=== PATIENT | female | born 1965 | race Caucasian/White ===

== ENCOUNTER 2018-04-06 11:46 | Emergency (ER) | payer BC ==
[2018-04-06] MEDS ORDERED: TETANUS & DIPHTHERIA TOX,ADULT 0.5 ML VIAL ONE (12:33)
[2018-04-06] MEDS ORDERED: LIDOCAINE 1% W/EPI 1:100,000 MDV 50 ML VIAL ONE (12:33)
--- NOTE | 2018-04-06 12:59 | RAD REPORT ---
EXAM DESCRIPTION: RAD - Forearm Left - 04/06/2018 12:48 pm CLINICAL HISTORY: Left forearm pain status post injury FINDINGS: No fracture is seen. A fish hook is present within the lateral soft tissues of the upper elbow
--- NOTE | 2018-04-06 13:13 | EDPHYS ---
Physician Documentation [facility] Name: Deidra Mesa Age: 52 yrs Sex: Female : 1965 Arrival Date: 04/06/2018 Time: 11:50 Bed 12 Private MD: out of town, doctor ED Physician Maulik Domingo HPI: 04/06 12:04 This 52 yrs old Female presents to ER via Unassigned with complaints of Fish kav Hook in arm. 12:25 Onset: The symptoms/episode began/occurred acutely. kav 13:02 Associated signs and symptoms: The patient has no apparent associated signs or kav symptoms. Modifying factors: The patient symptoms are alleviated by nothing, the patient symptoms are aggravated by movement. The patient has not experienced similar symptoms in the past. The patient has not recently seen a physician. pt reports cleaning 's truck and fish lure with treble hook fell down off of the sun visor and caught in her left forearm. 13:04 The patient or guardian complains of penetrating injury, fish hook. The complaints kav affect the left antecubital area. Context: The problem was sustained at home. Treatment prior to arrival includes: no previous treatment. Severity of symptoms: At their worst the symptoms were very mild, in the emergency department the symptoms are unchanged. CHIEF OF PARTY: 12:14 LMP N/A - Post-menopause lk1 Historical: - Allergies: 12:16 Ibuprofen; lk1 12:16 Naproxen; lk1 12:16 Amoxicillin; lk1 - PMHx: 12:16 None; lk1 - PSHx: 12:16 Cholecystectomy; lk1 - Immunization history:: Adult Immunizations up to date. - Social history:: Smoking status: Patient/guardian denies using tobacco. - Ebola Screening: : Patient negative for fever greater than or equal to 101.5 degrees Fahrenheit, and additional compatible Ebola Virus Disease symptoms Patient denies exposure to infectious person Patient denies travel to an Ebola-affected area in the 21 days before illness onset No symptoms or risks identified at this time. - Family history:: not pertinent. - Hospitalizations: : No recent hospitalization is reported. ROS: 13:04 Constitutional: Negative for fever, chills, and weight loss, Eyes: Negative for injury, kav pain, redness, and discharge, ENT: Negative for injury, pain, and discharge, Neck: Negative for injury, pain, and swelling, Cardiovascular: Negative for chest pain, palpitations, and edema, Respiratory: Negative for shortness of breath, cough, wheezing, and pleuritic chest pain, Abdomen/GI: Negative for abdominal pain, nausea, vomiting, diarrhea, and constipation, Back: Negative for injury and pain, : Negative for injury, bleeding, discharge, and swelling, MS/Extremity: Negative for injury and deformity, Neuro: Negative for headache, weakness, numbness, tingling, and seizure, Psych: Negative for depression, anxiety, suicide ideation, homicidal ideation, and hallucinations, Allergy/Immunology: Negative for hives, rash, and allergies, Endocrine: Negative for neck swelling, polydipsia, polyuria, polyphagia, and marked weight changes, Hematologic/Lymphatic: Negative for swollen nodes, abnormal bleeding, and unusual bruising. 13:04 Skin: Positive for puncture, of the left antecubital area. Exam: 13:04 Constitutional: This is a well developed, well nourished patient who is awake, alert, kav and in no acute distress. Head/Face: Normocephalic, atraumatic. Eyes: Pupils equal round and reactive to light, extra-ocular motions intact. Lids and lashes normal. Conjunctiva and sclera are non-icteric and not injected. Cornea within normal limits. Periorbital areas with no swelling, redness, or edema. ENT: Nares patent. No nasal discharge, no septal abnormalities noted. Tympanic membranes are normal and external auditory canals are clear. Oropharynx with no redness, swelling, or masses, exudates, or evidence of obstruction, uvula midline. Mucous membranes moist. Neck: Trachea midline, no thyromegaly or masses palpated, and no cervical lymphadenopathy. Supple, full range of motion without nuchal rigidity, or vertebral point tenderness. No Meningismus. Chest/axilla: Normal chest wall appearance and motion. Nontender with no deformity. No lesions are appreciated. Cardiovascular: Regular rate and rhythm with a normal S1 and S2. No gallops, murmurs, or rubs. Normal PMI, no JVD. No pulse deficits. Respiratory: Lungs have equal breath sounds bilaterally, clear to auscultation and percussion. No rales, rhonchi or wheezes noted. No increased work of breathing, no retractions or nasal flaring. Abdomen/GI: Soft, non-tender, with normal bowel sounds. No distension or tympany. No guarding or rebound. No evidence of tenderness throughout. Back: No spinal tenderness. No costovertebral tenderness. Full range of motion. MS/ Extremity: Pulses equal, no cyanosis. Neurovascular intact. Full, normal range of motion. Neuro: Awake and alert, GCS 15, oriented to person, place, time, and situation. Cranial nerves II-XII grossly intact. Motor strength 5/5 in all extremities. Sensory grossly intact. Cerebellar exam normal. Normal gait. Psych: Awake, alert, with orientation to person, place and time. Behavior, mood, and affect are within normal limits. 13:04 Skin: lesion(s), noted, and can be described as Fish Hook left anticubital area, located on the left antecubital area. Vital Signs: 12:14 BP 124 / 69; Pulse 64; Resp 14; Temp 97.8(TE); Pulse Ox 100% on R/A; Weight 71.21 kg lk1 (R); Height 5 ft. 7 in. (170.18 cm) (R); Pain 3/10; 12:14 Body Mass Index 24.59 (71.21 kg, 170.18 cm) lk1 MDM: 13:04 Data reviewed: vital signs, nurses notes. [facility] 13:12 Medical screening is not applicable. [facility] 04/06 12:26 Order name: Forearm Left XRAY; Complete Time: 13:13 [facility] 04/06 13:14 Interpretation: Abnormal: Fish hook lateral soft tissue of left anticubital area. [facility] 04/06 12:24 Order name: Suture Tray at Bedside; Complete Time: 13:21 [facility] Administered Medications: 13:20 Drug: Tetanus-Diphtheria Toxoid Adult 0.5 ml {Promotional Marketing Agent: [employer]. Exp: iw 06/08/2020. Lot #: [id number]. } Route: IM; Site: right deltoid; Disposition: 19:16 Co-signature as Attending Physician, Maulik Domingo MD I agree with the assessment and kdr plan of care. Disposition: 04/06/18 13:12 Discharged to Home. Impression: Removal of foreign body (fish hook). - Condition is Stable. - Discharge Instructions: Fish Hook Removal. - Prescriptions for Bactrim DS 800- 160 mg Oral Tablet - take 1 tablet by ORAL route every 12 hours for 3 days; 6 tablet. - Medication Reconciliation Form, Thank You Letter, Antibiotic Education form. - Follow up: Private Physician; When: 5 - 6 days; Reason: Recheck today's complaints, Continuance of care, Re-evaluation by your physician. - Problem is new. - Symptoms have improved. Signatures: Dispatcher [employer] EDMS Maulik Domingo MD MD kdr Vern, Katherine, NAZARIO ZAVALAP Alie Gupta, RN RN iw Elaine Rivera RN RN lk1 Corrections: (The following items were deleted from the chart) 13:43 13:12 04/06/2018 13:12 Discharged to Home. Impression: Removal of foreign body (fish iw hook). Condition is Stable. Forms are Medication Reconciliation Form, Thank You Letter, Antibiotic Education, Prescription Opioid Use. Follow up: Private Physician; When: 5 - 6 days; Reason: Recheck today's complaints, Continuance of care, Re-evaluation by your physician. Problem is new. Symptoms have improved. [email or web address]
--- NOTE | 2018-04-06 13:13 | ER ---
Nurse's Notes [facility] Name: Deidra Mesa Age: 52 yrs Sex: Female : 1965 Arrival Date: 04/06/2018 Time: 11:50 Bed 12 Private MD: out of town, doctor Diagnosis: Removal of foreign body (fish hook) Presentation: 04/06 12:13 Presenting complaint: Patient states: Fish hook in left arm about 30 minutes ago. lk1 Transition of care: patient was not received from another setting of care. Onset of symptoms was April 06, 2018 at 11:30. Risk Assessment: Do you want to hurt yourself or someone else? Patient reports no desire to harm self or others. Initial Sepsis Screen: Does the patient meet any 2 criteria? No. Patient's initial sepsis screen is negative. Does the patient have a suspected source of infection? No. Patient's initial sepsis screen is negative. Care prior to arrival: None. 12:13 Method Of Arrival: Ambulatory lk1 12:13 Acuity: JAN 4 lk1 MANAGEMENT TECH: 12:14 LMP N/A - Post-menopause lk1 Historical: - Allergies: 12:16 Ibuprofen; lk1 12:16 Naproxen; lk1 12:16 Amoxicillin; lk1 - PMHx: 12:16 None; lk1 - PSHx: 12:16 Cholecystectomy; lk1 - Immunization history:: Adult Immunizations up to date. - Social history:: Smoking status: Patient/guardian denies using tobacco. - Ebola Screening: : Patient negative for fever greater than or equal to 101.5 degrees Fahrenheit, and additional compatible Ebola Virus Disease symptoms Patient denies exposure to infectious person Patient denies travel to an Ebola-affected area in the 21 days before illness onset No symptoms or risks identified at this time. - Family history:: not pertinent. - Hospitalizations: : No recent hospitalization is reported. Vital Signs: 12:14 BP 124 / 69; Pulse 64; Resp 14; Temp 97.8(TE); Pulse Ox 100% on R/A; Weight 71.21 kg lk1 (R); Height 5 ft. 7 in. (170.18 cm) (R); Pain 3/10; 12:14 Body Mass Index 24.59 (71.21 kg, 170.18 cm) lk1 ED Course: 11:50 Patient arrived in ED. mr 11:50 out of town, doctor is Private Physician. mr 12:04 Octavia Genao FNP is PHCP. kav 12:04 Maulik Domingo MD is Attending Physician. kav 12:14 Triage completed. lk1 12:17 Alie Mcmullen, RN is Primary Nurse. iw 12:17 Arm band placed on right wrist. lk1 12:47 Forearm Left XRAY In Process Unspecified. EDMS Administered Medications: 13:20 Drug: Tetanus-Diphtheria Toxoid Adult 0.5 ml {Dressmaker Or Tailor: [employer]. Exp: iw 06/08/2020. Lot #: [id number]. } Route: IM; Site: right deltoid; Outcome: 13:12 Discharge ordered by . kav 13:28 Patient left the ED. iw Signatures: Dispatcher [employer] EDMS Octavia Genao FNP FNP kav Rivera, Maria mr Alie Mcmullen, RN RN iw Elaine Rivera RN RN lk1 Corrections: (The following items were deleted from the chart) 13:43 13:43 Patient left the ED. iw iw
== END 2018-04-06 13:43 | disposition home or self-care (01) ==
LOC: ER 11:46
PROC: 0JCH0ZZ Extirpation of Matter from Left Lower Arm Subcutaneous Tissue and Fascia, Open Approach (ICD-10-PCS; principal; 2018-04-06)
DX: S51.842A Puncture wound with foreign body of left forearm, initial encounter (principal); W45.8XXA Other foreign body or object entering through skin, initial encounter; Y93.9 Activity, unspecified; Y92.810 Car as the place of occurrence of the external cause; Y99.9 Unspecified external cause status; Z88.1 Allergy status to other antibiotic agents; Z88.8 Allergy status to other drugs, medicaments and biological substances
CPT/HCPCS: 90714; 99283

== ENCOUNTER 2020-07-22 08:37 | Emergency (ER) | payer BC, SELFPAY ==
--- OUTSIDE RECORDS SUMMARY | 2020-07-22 09:17 | XMS REPORT | Continuity of Care Document ---
:1965 Author Organization [facility] t Address [facility] [place] [address] Care Team Providers Name Role Phone Unavailable Unavailable Unavailable Problems This patient has no known problems. Allergies, Adverse Reactions, Alerts This patient has no known allergies or adverse reactions. Medications This patient has no known medications. Procedures This patient has no known procedures. Results Test Description Test Time Test Comments Results Result [facility] e Comments DIAG MAMM 2019-02-26 DIAG MAMM BILATERAL BILATERAL CAD 14:35:53 CAD DIGITALBILATERAL DIGITAL DIGITAL DIAGNOSTIC MAMMOGRAM WITH CAD: 02/26/2019CLINICAL: Right breast thickening. Current mammographic images were evaluated by either a [employer] M-Vu or a [employer] Image[employer]er CAD (computer aided detection system). Comparison is made to exams dated 09/15/2018 mammogram, 12/24/2016 mammogram, and 11/02/2014 mammogram - [facility]. There are scattered fibroglandular tissues in both breasts. There are nodular densities in the right breast that most likely represent benign fibroadenomas, cysts, or nodular breast tissue, however this must be confirmed with ultrasound. No suspicious mass, architectural distortion, malignant type calcification, or lymph node abnormality detected. INCOMPLETE ASSESSMENT: ADDITIONAL IMAGING EVALUATION RECOMMENDED Ultrasound pending for additional evaluation. Resume annual screening mammography in one year. - BREAST ULTRASOUND BILATERALULTRASOUND OF BOTH BREASTS AND BOTH AXILLA: 02/26/2019Comparison is made to exams dated 09/15/2018 mammogram, 12/24/2016 mammogram, and 11/02/2014 mammogram - [facility]. Real-time ultrasound of both breasts and both axilla was performed. There is a benign 1.3 cm hyperechoic mass in the right breast at 2 o'clock, 6 cm from the nipple. Color flow imaging demonstrates that there is no increase in vascularity. The palpable mass felt by the patient is a benign 1.3 cm hypoechoic mass in the right breast at 10 o'clock 6 cm from the nipple. Color flow imaging demonstrates that there is no increase in vascularity. No abnormalities were seen sonographically in the left breast or either axilla. IMPRESSION: BENIGN There is no sonographic evidence of malignancy. The masses in the right breast are most likely due to fat necrosis. Patient has been informed that she should have screening mammogram and supplemental ultrasound in 1 year.Cristina Land M.D. dm/:02/26/2019 14:35:53 Production Cell Leader: Vicki Graf FW RT(M), [facility]-FWletter sent: BIRADS 1-2 Combo FU Letter Mammogram BI-RADS: 0 Indeterminate Ultrasound BI-RADS: 2 Benign BREAST ULTRASOUND 2019-02-26 - DIAG MAMM BILATERAL BILATERAL 14:35:53 CAD DIGITALBILATERAL DIGITAL DIAGNOSTIC MAMMOGRAM WITH CAD: 02/26/2019CLINICAL: Right breast thickening. Current mammographic images were evaluated by either a [employer] M-Vu or a [employer] CAD (computer aided detection system). Comparison is made to exams dated 09/15/2018 mammogram, 12/24/2016 mammogram, and 11/02/2014 mammogram - [facility]. There are scattered fibroglandular tissues in both breasts. There are nodular densities in the right breast that most likely represent benign fibroadenomas, cysts, or nodular breast tissue, however this must be confirmed with ultrasound. No suspicious mass, architectural distortion, malignant type calcification, or lymph node abnormality detected. INCOMPLETE ASSESSMENT: ADDITIONAL IMAGING EVALUATION RECOMMENDED Ultrasound pending for additional evaluation. Resume annual screening mammography in one year. - BREAST ULTRASOUND BILATERALULTRASOUND OF BOTH BREASTS AND BOTH AXILLA: 02/26/2019Comparison is made to exams dated 09/15/2018 mammogram, 12/24/2016 mammogram, and 11/02/2014 mammogram - [facility]. Real-time ultrasound of both breasts and both axilla was performed. There is a benign 1.3 cm hyperechoic mass in the right breast at 2 o'clock, 6 cm from the nipple. Color flow imaging demonstrates that there is no increase in vascularity. The palpable mass felt by the patient is a benign 1.3 cm hypoechoic mass in the right breast at 10 o'clock 6 cm from the nipple. Color flow imaging demonstrates that there is no increase in vascularity. No abnormalities were seen sonographically in the left breast or either axilla. IMPRESSION: BENIGN There is no sonographic evidence of malignancy. The masses in the right breast are most likely due to fat necrosis. Patient has been informed that she should have screening mammogram and supplemental ultrasound in 1 year.Cristina Land M.D. dm/:02/26/2019 14:35:53 Production Cell Leader: Vicki Graf FW RT(M), [facility]-FWletter sent: BIRADS 1-2 Combo FU Letter Mammogram BI-RADS: 0 Indeterminate Ultrasound BI-RADS: 2 Benign SCR MAMM 2018-09-19 - SCR MAMM BILATERAL BILATERAL CAD 14:23:03 CAD DIGITALBILATERAL DIGITAL DIGITAL SCREENING MAMMOGRAM WITH CAD: 09/15/2018CLINICAL: Asymptomatic. Current mammographic images were evaluated by either a [employer] M-Vu or a [employer] CAD (computer aided detection system). Comparison is made to exams dated 12/24/2016 mammogram and 11/02/2014 mammogram - [facility]. There are scattered fibroglandular tissues in both breasts. No suspicious mass, architectural distortion, malignant type calcification, or lymph node abnormality detected. Breast architecture is stable compared to prior exams.IMPRESSION: NEGATIVEThere is no mammographic evidence of malignancy. Resume annual screening mammography in one year. Anatoly rodriguez/mia:09/19/2018 14:23:03 Attending Technologist: Jennifer Boss MM, [facility] Technologist: Jackelyn Burt MM, [facility] sent: BIRADS 1-2 Normal Mammogram BI-RADS: 1 Negative
[2020-07-22] MEDS ORDERED: NA CHLORIDE 0.9% 1,000 ML ONE (09:33)
[2020-07-22] MEDS ORDERED: MORPHINE 4 MG/ML SYR ONE ×2 (09:33→10:43)
[2020-07-22] MEDS ORDERED: ONDANSETRON 4 MG/2 ML VIAL ONE (09:33)
[2020-07-22 10:02] LABS: Absolute Lymphocytes (CBC) 1.7 K/uL (0.7-4.9); Basophils % 0.8 % (0-1.3); Hematocrit 42.7 % (36.0-45.0); Lymphocytes % 43.1 % (15.3-44.8); MPV 8.4 fL (7.6-11.3); RBC Red Blood Cell Count 4.68 M/uL (3.86-4.86)
--- NOTE | 2020-07-22 10:04 | RAD REPORT ---
EXAM DESCRIPTION: CTAbdomen Pelvis W Contrast - 07/22/2020 9:43 am CLINICAL HISTORY: Abdominal pain. Flank pain;Abd pain COMPARISON: No comparisons TECHNIQUE: Biphasic CT imaging of the abdomen and pelvis was performed with 100 ml non-ionic IV cont rast. All CT scans are performed using dose optimization technique as appropriate and may include automated exposure control or mA/KV adjustment according to patient size. FINDINGS: The lung bases are clear.Cholecystectomy. The liver, spleen, pancreas, adrenal glands and kidneys are within normal limits. No bowel obstruction, free air, free fluid or abscess. Mild sigmoid diverticulosis without diverticul itis. The appendix is normal. No evidence of significant lymphadenopathy. 6 cm right ovarian cyst is noted. No suspicious bony findings. IMPRESSION: No acute intra-abdominal or pelvic finding. 6 cm right ovarian cyst suspected.
[2020-07-22 10:05] LABS: ALT/SGPT 32 U/L (12-78); AST/SGOT 28 U/L (15-37); Albumin 4.1 g/dL (3.4-5.0); Alkaline Phosphatase 78 U/L (45-117); BUN Blood Urea Nitrogen 11 mg/dL (7-18); Bicarbonate 31 mmol/L (21-32); Bilirubin Direct < 0.1 mg/dL (0-0.2); Bilirubin Total 0.3 mg/dL (0.2-1.0); Glucose Level 100 mg/dL (74-106); Lipase 148 U/L (73-393); Potassium 3.7 mmol/L (3.5-5.1); Protein, Total 8.5 g/dL (6.4-8.2); Sodium Level 138 mmol/L (136-145)
[2020-07-22 10:11] LABS: Urine Blood TRACE (NEG); Urine Glucose NEGATIVE (NEG); Urine Protein TRACE (NEG); Urine Specific Gravity 1.025 (1.005-1.030); Urine pH 6.5 (5.0-7.0)
[2020-07-22 10:27] LABS: Urine Bacteria <20 /HPF (<20); Urine Culture Reflex Order NOT NEEDED; Urine Mucus LIGHT /HPF (NONE SEEN); Urine RBC <5 /HPF (NONE SEEN)
[2020-07-22 10:38] LABS: Blood Morphology Comment NOT SEEN (NOT SEEN); Platelet Estimate ADEQ
[2020-07-22] MEDS ORDERED: PROMETHAZINE INJ 25 MG/ML AMP ONE (12:04)
--- NOTE | 2020-07-22 12:04 | RAD REPORT ---
EXAM DESCRIPTION: US - Transvaginal Study Probe - 07/22/2020 11:45 am CLINICAL HISTORY: r/o ovarian torsion Pelvic pain. COMPARISON: No comparisons FINDINGS: The uterus is normal in size, shape and echotexture. The uterus measures 5.3 x 3.6 x 2.9 c m. The endometrial stripe measures 10 mm, normal. Left ovary is obscured by bowel gas. The right ovary measures 7.5 x 6.9 x 6.1 cm. There is a benign appearing right ovarian cyst measuring 5.6 x 5.4 x 5.4 cm. Normal blood flow seen to the right ovary. No significant pelvic ascites. IMPRESSION: 5.6 x 5.4 cm benign appearing right ovarian cyst. No ovarian torsion findings on the rig ht. Follow-up pelvic ultrasound would be recommended in 3-6 months to ensure resolution. The left ovary is obscured by bowel gas.
--- NOTE | 2020-07-22 12:14 | EDPHYS ---
Physician Documentation [facility] Name: Deidra Mesa Age: 54 yrs Sex: Female : 1965 Arrival Date: 07/22/2020 Time: 08:40 Bed 24 Private MD: ED Physician Manpreet Palafox HPI: 07/22 09:25 This 54 yrs old Female presents to ER via Ambulatory with complaints of pm1 Abdominal Pain, Back Pain. 09:25 The patient presents with abdominal pain right lower quadrant, and right flank. Onset: pm1 The symptoms/episode began/occurred this morning. The symptoms do not radiate. Associated signs and symptoms: Pertinent positives: Diarrhea yesterday, Pertinent negatives: chest pain, constipation, dysuria, fever, nausea, shortness of breath, vomiting. The symptoms are described as sharp. Modifying factors: The symptoms are alleviated by nothing, the symptoms are aggravated by movement. Severity of pain: in the emergency department the pain is unchanged. The patient has not experienced similar symptoms in the past. 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 - Social history:: Smoking status: Patient denies any tobacco usage or history of. ROS: 09:25 Constitutional: Negative for fever, chills, and weight loss, Cardiovascular: Negative pm1 for chest pain, palpitations, and edema, Respiratory: Negative for shortness of breath, cough, wheezing, and pleuritic chest pain. 09:25 : Negative for injury, bleeding, discharge, and swelling, MS/Extremity: Negative for injury and deformity, Skin: Negative for injury, rash, and discoloration, Neuro: Negative for headache, weakness, numbness, tingling, and seizure. 09:25 Abdomen/GI: Positive for abdominal pain, diarrhea, of the right lower quadrant, Negative for nausea and vomiting, constipation. 09:25 Back: Positive for flank pain, on the right. Exam: 09:25 Constitutional: This is a well developed, well nourished patient who is awake, alert, pm1 and in no acute distress. Head/Face: Normocephalic, atraumatic. 09:25 Back: No spinal tenderness. No costovertebral tenderness. Full range of motion. Skin: Warm, dry with normal turgor. Normal color with no rashes, no lesions, and no evidence of cellulitis. MS/ Extremity: Pulses equal, no cyanosis. Neurovascular intact. Full, normal range of motion. 09:25 Cardiovascular: Rate: normal, Rhythm: regular, Pulses: no pulse deficits are appreciated, Edema: is not appreciated. 09:25 Respiratory: Exam negative for acute changes, respiratory distress, shortness of breath. 09:25 Abdomen/GI: Inspection: abdomen appears normal, Palpation: soft, in all quadrants, mild abdominal tenderness, in the right lower quadrant, mass, is not appreciated. 09:25 Neuro: Exam negative for acute changes, Orientation: is normal, Motor: is normal, moves all fours. Vital Signs: 09:11 BP 132 / 92; Pulse 77; Resp 16; Temp 98.9; Pulse Ox 97% on R/A; Pain 8/10; iw 11:59 BP 105 / 63; Pulse 71; Resp 15; Pulse Ox 96% ; jl7 13:47 BP 108 / 78; Pulse 74; Resp 16 S; Temp 98.6(O); Pulse Ox 98% on R/A; Pain 0/10; iw MDM: 09:08 Patient medically screened. pm1 09:45 Data reviewed: vital signs. Data interpreted: Pulse oximetry: on room air is 97 %. pm1 Interpretation: normal. 10:22 ED course: Discussed CT findings with patient. Pending urine micro. Patient reports pm1 pain has returned. Due to diagnosis of ovarian cyst. Would like to give NSAID but patient allergic to it. Will give additional narcotic. 10:40 Counseling: I had a detailed discussion with the patient and/or guardian regarding: the pm1 historical points, exam findings, and any diagnostic results supporting the discharge/admit diagnosis, lab results, radiology results, the need for outpatient follow up, an OB/Gyne specialist, to return to the emergency department if symptoms worsen or persist or if there are any questions or concerns that arise at home. 10:47 ED course: Patient reports no improvement in abdominal pain with medication. Will order pm1 additional test. U/S to rule out ovarian torsion. 12:12 Counseling: I had a detailed discussion with the patient and/or guardian regarding: pm1 radiology results, the need for outpatient follow up, for definitive care, an OB/Gyne specialist, to return to the emergency department if symptoms worsen or persist or if there are any questions or concerns that arise at home. 12:12 ED course: Patient reports pain 3/10 with additional medication given. pm1 07/22 09:10 Order name: Basic Metabolic Panel; Complete Time: 10:17 pm1 07/22 09:10 Order name: CBC with Diff; Complete Time: 10:39 pm1 07/22 09:10 Order name: Hepatic Function; Complete Time: 10:17 pm1 07/22 09:10 Order name: Lipase; Complete Time: 10:17 pm1 07/22 09:10 Order name: Urine Microscopic Only; Complete Time: 10:39 pm1 07/22 09:38 Order name: Urine Dipstick--Ancillary (enter results); Complete Time: 10:17 bd 07/22 09:10 Order name: CT Abd/Pelvis - IV Contrast Only; Complete Time: 10:17 pm1 07/22 10:38 Order name: Manual Differential; Complete Time: 10:39 EDMS 07/22 11:20 Order name: Transvaginal Study Probe; Complete Time: 12:12 EDMS 07/22 12:22 Order name: CREATININE WHOLE BLOOD; Complete Time: 12:46 EDMS 07/22 09:10 Order name: IV Saline Lock; Complete Time: 09:42 pm1 07/22 09:10 Order name: Labs collected and sent; Complete Time: 09:42 pm1 07/22 09:10 Order name: Urine Dipstick-Ancillary (obtain specimen); Complete Time: 09:42 pm1 07/22 09:10 Order name: Urine Test (obtain specimen); Complete Time: 09:42 pm1 Administered Medications: 09:30 Drug: NS 0.9% 1000 ml Route: IV; Rate: 1000 ml; Site: right antecubital; iw 09:30 Drug: Zofran (Ondansetron) 4 mg Route: IVP; Site: right antecubital; iw 09:32 Drug: morphine 4 mg Route: IVP; Site: right antecubital; iw 10:42 Drug: morphine 4 mg {Note: rass 0.} Route: IVP; Site: right antecubital; ca1 11:52 Drug: Phenergan 12.5 mg Route: IVP; Site: right antecubital; ca1 Disposition: 17:53 Co-signature as Attending Physician, Manpreet Palafox MD. rn Disposition: 07/22/20 12:13 Discharged to Home. Impression: Other ovarian cysts - Right. - Condition is Stable. - Discharge Instructions: Ovarian Cyst. - Prescriptions for Tylenol- Codeine #3 300-30 mg Oral Tablet - take 2 tablets by ORAL route every 6 hours As needed; 20 tablet. - Medication Reconciliation Form, Thank You Letter, Antibiotic Education, Prescription Opioid Use form. - Follow up: Emergency Department; When: As needed; Reason: Worsening of condition. Follow up: Private Physician; When: 2 - 3 days; Reason: Recheck today's complaints, Continuance of care, Re-evaluation by your physician. - Problem is new. - Symptoms have improved. Signatures: Dispatcher [employer] Alie Lakhani RN RN iw Nieto, Roman, MD MD rn Marinas, Patrick, INTEGRATION ANALYST INTEGRATION ANALYST pm1 Praveena Damian RN RN ca1 Corrections: (The following items were deleted from the chart) 11:20 10:49 Abdomen Limited+US.RAD.BRZ ordered. [facility] 13:49 12:13 07/22/2020 12:13 Discharged to Home. Impression: Other ovarian cysts - Right. iw Condition is Stable. Forms are Medication Reconciliation Form, Thank You Letter, Antibiotic Education, Prescription Opioid Use. Follow up: Emergency Department; When: As needed; Reason: Worsening of condition. Follow up: Private Physician; When: 2 - 3 days; Reason: Recheck today's complaints, Continuance of care, Re-evaluation by your physician. Problem is new. Symptoms have improved. pm1
--- NOTE | 2020-07-22 12:14 | ER ---
Nurse's Notes [facility] Name: Deidra Mesa Age: 54 yrs Sex: Female : 1965 Arrival Date: 07/22/2020 Time: 08:40 Bed 24 Private MD: Diagnosis: Other ovarian cysts-Right Presentation: 07/22 09:08 Chief complaint: Patient states: RUQ pain radiating to back started this am, also had iw diarrhea yesterday. Coronavirus screen: At this time, the client does not indicate any symptoms associated with coronavirus-19. Ebola Screen: Patient negative for fever greater than or equal to 101.5 degrees Fahrenheit, and additional compatible Ebola Virus Disease symptoms Patient denies exposure to infectious person. Patient denies travel to an Ebola-affected area in the 21 days before illness onset. No symptoms or risks identified at this time. Initial Sepsis Screen: Does the patient meet any 2 criteria? No. Patient's initial sepsis screen is negative. Does the patient have a suspected source of infection? No. Patient's initial sepsis screen is negative. Risk Assessment: Do you want to hurt yourself or someone else? Patient reports no desire to harm self or others. Onset of symptoms was July 22, 2020. 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 - Social history:: Smoking status: Patient denies any tobacco usage or history of. Screenin:39 Abuse screen: Denies threats or abuse. Denies injuries from another. Nutritional iw screening: No deficits noted. Tuberculosis screening: No symptoms or risk factors identified. Fall Risk IV access (20 points). Assessment: 09:39 General: Appears in no apparent distress. uncomfortable, Behavior is calm, cooperative, iw appropriate for age. Pain: Complains of pain in right lower quadrant Pain radiates to right low back Pain currently is 7 out of 10 on a pain scale. Quality of pain is described as aching, Pain began 1 day ago. Is continuous. Neuro: Level of Consciousness is awake, alert, obeys commands, Oriented to person, place, time, situation. Cardiovascular: Patient's skin is warm and dry. Respiratory: Airway is patent Respiratory effort is even, unlabored, Respiratory pattern is regular, symmetrical. GI: Abdomen is non-distended, Reports nausea, Patient currently denies diarrhea, vomiting. : Urine is clear, Reports urinary frequency, Denies burning with urination, pain with urination. Derm: Skin is pink, warm \T\ dry. 11:50 Reassessment: Pt c/o nausea. Notified provider. FABIO Garcia VO Phenergan 12.5 IV. Meds ca1 given. 12:10 Reassessment: pt reports decreased nausea. jl7 12:25 Reassessment: Pt reports being too drowsy to drive and she doesn't have anyone to come jl7 pick her up. Charge nurse notified. 12:42 Reassessment: Patient appears in no apparent distress at this time. Patient and/or iw family updated on plan of care and expected duration. Pain level reassessed. pt placed in ER bed 24, placed on BP and pulse ox 100%. 13:47 Reassessment: Patient appears in no apparent distress at this time. Patient and/or iw family updated on plan of care and expected duration. Pain level reassessed. Patient is alert, oriented x 3, equal unlabored respirations, skin warm/dry/pink. Patient states feeling better. Patient states symptoms have improved. 13:48 GI: Bowel sounds present X 4 quads. Abd is soft and non tender. iw Vital Signs: 09:11 BP 132 / 92; Pulse 77; Resp 16; Temp 98.9; Pulse Ox 97% on R/A; Pain 8/10; iw 11:59 BP 105 / 63; Pulse 71; Resp 15; Pulse Ox 96% ; jl7 13:47 BP 108 / 78; Pulse 74; Resp 16 S; Temp 98.6(O); Pulse Ox 98% on R/A; Pain 0/10; iw ED Course: 08:40 Patient arrived in ED. as 09:03 Jose Cervantes NP is PHCP. pm1 09:03 Manpreet Palafox MD is Attending Physician. pm1 09:09 Triage completed. iw 09:11 Arm band placed on. iw 09:18 Demetrio Boston, RN is Primary Nurse. jl7 09:39 Patient has correct armband on for positive identification. Bed in low position. Call iw light in reach. Side rails up X 1. Pulse ox on. NIBP on. Warm blanket given. 09:39 Initial lab(s) drawn, by me, sent to lab. Urine collected: clean catch specimen, clear. iw Inserted saline lock: 20 gauge in right antecubital area, using aseptic technique. Blood collected. 09:44 CT Abd/Pelvis - IV Contrast Only In Process Unspecified. EDMS 11:45 Transvaginal Study Probe In Process Unspecified. EDMS 13:48 No provider procedures requiring assistance completed. IV discontinued, intact, iw bleeding controlled, No redness/swelling at site. Pressure dressing applied. Administered Medications: 09:30 Drug: NS 0.9% 1000 ml Route: IV; Rate: 1000 ml; Site: right antecubital; iw 09:30 Drug: Zofran (Ondansetron) 4 mg Route: IVP; Site: right antecubital; iw 09:32 Drug: morphine 4 mg Route: IVP; Site: right antecubital; iw 10:42 Drug: morphine 4 mg {Note: rass 0.} Route: IVP; Site: right antecubital; ca1 11:52 Drug: Phenergan 12.5 mg Route: IVP; Site: right antecubital; ca1 Outcome: 12:13 Discharge ordered by MD. pm1 13:48 Discharged to home ambulatory. iw 13:48 Condition: good 13:48 Discharge instructions given to patient, Instructed on discharge instructions, follow up and referral plans. medication usage, Demonstrated understanding of instructions, follow-up care, medications, Prescriptions given X 1. 13:49 Patient left the ED. iw Signatures: Dispatcher [employer] EDMS Poonam Gillis Irene, RN RN iw Jose Cervantes, FABIO DATA SECURITY COORDINATOR pm1 Demetrio Boston, RN RN jl7 Praveena Damian RN RN ca1 Corrections: (The following items were deleted from the chart) 09:12 09:11 BP 132 / 92; Pulse 77bpm; Resp 16bpm; Pulse Ox 97% RA; Temp 98.9F; iw iw
[2020-07-22 14:47] VITALS: BP 108/78; TEMP 98.6; O2SAT 98
== END 2020-07-22 13:49 | disposition home or self-care (01) ==
LOC: ER 08:37
DX: N83.291 Other ovarian cyst, right side (principal); Z88.1 Allergy status to other antibiotic agents; Z88.5 Allergy status to narcotic agent; Z88.6 Allergy status to analgesic agent
CPT/HCPCS: 36415; 74177; 76830; 80048; 80076; 81003; 81015; 82565; 83690; 85025; 96374; 96375; 99284; J2405; J2550; J7030; Q9967

== ENCOUNTER 2023-03-28 17:57 | Emergency (ER) | payer BC, SELFPAY ==
[2023-03-28] MEDS ORDERED: ONDANSETRON 4 MG/2 ML VIAL ONE (18:40)
[2023-03-28] MEDS ORDERED: NA CHLORIDE 0.9% 1,000 ML ONE (18:40)
[2023-03-28 18:50] LABS: Absolute Lymphocytes (CBC) 2.3 K/uL (0.7-4.9); Hematocrit 38.4 % (36.0-45.0); Lymphocytes % 29.6 % (15.3-44.8); MCV 91.2 fL (80-100); MPV 7.3 fL (7.6-11.3); RBC Red Blood Cell Count 4.22 M/uL (3.86-4.86)
[2023-03-28 19:08] LABS: Albumin 3.5 g/dL (3.4-5.0); Bilirubin Total 0.3 mg/dL (0.2-1.0); Potassium 3.4 mEq/L (3.5-5.1); Protein, Total 7.2 g/dL (6.4-8.2)
--- NOTE | 2023-03-28 19:19 | EDPHYS ---
Physician Documentation [facility] Name: Deidra Logan Age: 57 yrs Sex: Female : 1965 Arrival Date: 03/28/2023 Time: 17:57 Bed 14 Private MD: NORMAN Physician Elvin Strauss HPI: 03/28 19:09 This 57 yrs old Female presents to ER via Ambulatory with complaints of anyi Headache, Dizziness. 19:09 The patient complains of pain to the top of head and forehead. The patient describes anyi the headache as aching. Onset: The symptoms/episode began/occurred 2 day(s) ago. Associated signs and symptoms: The patient has no apparent associated signs or symptoms. Severity of symptoms: At its worst the pain was mild, in the emergency department the pain is unchanged. Headache History: The patient has had previous headaches and this one is different than previous episodes. The symptoms are alleviated by nothing. the symptoms are aggravated by nothing. The patient has not experienced similar symptoms in the past. Historical: - Allergies: 18:09 Amoxicillin; aa5 18:09 Ibuprofen; aa5 18:09 Naproxen; aa5 - Home Meds: 18:09 None [Active]; aa5 - PMHx: 18:09 Diverticulitis; aa5 - PSHx: 18:09 left fallopian tube and left ovary removed; aa5 18:10 Cholecystectomy; aa5 - Immunization history:: Adult Immunizations unknown. - Social history:: Smoking status: Patient denies any tobacco usage or history of. ROS: 19:10 Constitutional: Negative for fever, chills, and weight loss, Eyes: Negative for injury, anyi pain, redness, and discharge, ENT: Negative for injury, pain, and discharge, Neck: Negative for injury, pain, and swelling, Cardiovascular: Negative for chest pain, palpitations, and edema, Respiratory: Negative for shortness of breath, cough, wheezing, and pleuritic chest pain, Back: Negative for injury and pain, : Negative for injury, bleeding, discharge, and swelling, MS/Extremity: Negative for injury and deformity, Skin: Negative for injury, rash, and discoloration, Psych: Negative for depression, anxiety, suicide ideation, homicidal ideation, and hallucinations, Allergy/Immunology: Negative for hives, rash, and allergies, Endocrine: Negative for neck swelling, polydipsia, polyuria, polyphagia, and marked weight changes, Hematologic/Lymphatic: Negative for swollen nodes, abnormal bleeding, and unusual bruising. 19:10 Abdomen/GI: Positive for nausea. 19:10 Neuro: Positive for headache. Exam: 19:10 Constitutional: This is a well developed, well nourished patient who is awake, alert, anyi and in no acute distress. Head/Face: Normocephalic, atraumatic. Eyes: Pupils equal round and reactive to light, extra-ocular motions intact. Lids and lashes normal. Conjunctiva and sclera are non-icteric and not injected. Cornea within normal limits. Periorbital areas with no swelling, redness, or edema. ENT: Nares patent. No nasal discharge, no septal abnormalities noted. Tympanic membranes are normal and external auditory canals are clear. Oropharynx with no redness, swelling, or masses, exudates, or evidence of obstruction, uvula midline. Mucous membranes moist. Neck: Trachea midline, no thyromegaly or masses palpated, and no cervical lymphadenopathy. Supple, full range of motion without nuchal rigidity, or vertebral point tenderness. No Meningismus. Chest/axilla: Normal chest wall appearance and motion. Nontender with no deformity. No lesions are appreciated. Cardiovascular: Regular rate and rhythm with a normal S1 and S2. No gallops, murmurs, or rubs. Normal PMI, no JVD. No pulse deficits. Respiratory: Lungs have equal breath sounds bilaterally, clear to auscultation and percussion. No rales, rhonchi or wheezes noted. No increased work of breathing, no retractions or nasal flaring. Abdomen/GI: Soft, non-tender, with normal bowel sounds. No distension or tympany. No guarding or rebound. No evidence of tenderness throughout. Back: No spinal tenderness. No costovertebral tenderness. Full range of motion. Skin: Warm, dry with normal turgor. Normal color with no rashes, no lesions, and no evidence of cellulitis. MS/ Extremity: Pulses equal, no cyanosis. Neurovascular intact. Full, normal range of motion. Neuro: Awake and alert, GCS 15, oriented to person, place, time, and situation. Cranial nerves II-XII grossly intact. Motor strength 5/5 in all extremities. Sensory grossly intact. Cerebellar exam normal. Normal gait. Psych: Awake, alert, with orientation to person, place and time. Behavior, mood, and affect are within normal limits. Vital Signs: 18:09 BP 158 / 82; Pulse 58; Resp 16 S; Temp 98.1(TE); Pulse Ox 98% on R/A; Weight 72.57 kg aa5 (R); Height 5 ft. 6 in. (R); 19:58 BP 143 / 69; Pulse 55; Resp 16; Pulse Ox 98% on R/A; jb4 18:09 Body Mass Index 25.82 (72.57 kg, 167.64 cm) aa5 NIH Stroke Scale Scores: 19:10 NIHSS Score: 0 anyi [place] Coma Score: 19:26 Eye Response: spontaneous(4). Motor Response: obeys commands(6). Verbal Response: anyi oriented(5). Total: 15. MDM: 18:12 Patient medically screened. anyi 19:26 Differential diagnosis: Contusion of Hematoma on Laceration of Concussion epidural anyi hematoma, hyponatremia, intracerebral hemorrhage, migraine, neoplasm, subarachnoid bleed, subdural hematoma, temporal arteritis, tension headache. Data reviewed: vital signs, nurses notes, lab test result(s), radiologic studies, CT scan. Consideration of Admission/Observation Escalation of care including admission/observation considered. I considered the following discharge prescriptions or medication management in the emergency department Medications were administered in the Emergency Department. See MAR. Independent interpretation of the following test(s) in the Emergency Department CT Scan: My interpretation is CT HEAD. Test considered but Not performed: MRI: NO MRI BRAIN. Care significantly affected by the following chronic conditions: DIVERTICULITIS. Counseling: I had a detailed discussion with the patient and/or guardian regarding: the historical points, exam findings, and any diagnostic results supporting the discharge/admit diagnosis, lab results, radiology results, the need for outpatient follow up, for definitive care, a family practitioner, a neurologist. 03/28 18:14 Order name: CBC with Diff; Complete Time: 19:26 anyi 03/28 18:14 Order name: Comprehensive Metabolic Panel; Complete Time: 19:26 anyi 03/28 18:14 Order name: CT Head C Spine [facility] 03/28 19:09 Order name: PO challenge: JUICE; Complete Time: 19:11 anyi Administered Medications: 18:43 Drug: NS 0.9% IV 1000 ml Route: IV; Rate: 1 bolus; Site: right forearm; bp 18:43 Drug: Ondansetron IVP 4 mg Route: IVP; Site: right forearm; bp Disposition Summary: 03/28/23 19:18 Discharge Ordered Location: Home anyi Problem: new anyi Symptoms: have improved anyi Condition: Stable anyi Diagnosis - Unspecified injury of head, initial encounter anyi - Concussion without loss of consciousness anyi - Postconcussional syndrome anyi - Headache anyi - Hypokalemia anyi Followup: anyi - With: Private Physician - When: 2 - 3 days - Reason: Recheck today's complaints, Continuance of care, Re-evaluation by your physician Followup: anyi - With: Eric Miranda MD - When: 2 - 3 days - Reason: Recheck today's complaints, Re-evaluation by your physician Discharge Instructions: - Discharge Summary Sheet anyi - Potassium Content of Foods anyi - Head Injury, Adult anyi - Nausea, Adult anyi - Post-Concussion Syndrome anyi - Post-Concussion Syndrome, [id number] anyi - Hypokalemia anyi Forms: - Medication Reconciliation Form anyi - Thank You Letter anyi - Antibiotic Education anyi - Prescription Opioid Use anyi Prescriptions: - ondansetron 4 mg Oral Tablet,disintegrating - take 1 tablet by ORAL route 3-4 times daily for 5 days; 20 tablet; Refills: 0, anyi Product Selection Permitted NIH Stroke Scale - NIH Stroke Score Date: 03/28/2023 Time: 19:10 Total Score = 0 10. Dysarthria (speech clarity - read or repeat words) - 0(Normal) 11. Extinction and Inattention (visual/tactile/auditory/spatial/personal) - 0(No abnormality) 1a. Level of Consciousness (LOC) - 0(Alert) 1b. Level of Consciousness (LOC) (Month \T\ Age) - 0(Both) 1c. LOC Commands (Open \T\ Closes Eyes/Host/Hostess) - 0(Both) 2. Best Gaze (Lateral Gaze Paresis) - 0(Normal) 3. Visual Field Loss - 0(No visual loss) 4. Facial Palsy - 0(Normal) 5a. Left Arm: Motor (10-second hold) - 0(No drift) 5b. Right Arm: Motor (10-second hold) - 0(No drift) 6a. Left Leg: Motor (5-second hold - always test supine) - 0(No drift) 6b. Right Leg: Motor (5-second hold - always test supine) - 0(No drift) 7. Limb Ataxia (finger/nose \T\ heel/mosqueda - test with eyes open) - 0(Absent) 8. Sensory Loss (pinprick arms/legs/face) - 0(Normal) 9. Best Language: Aphasia (description/naming/reading) - 0(No aphasia) Initials: [facility] Signatures: Dispatcher [employer] Elvin Melchor MD MD cha Calderon, Audri, RN RN aa5 Yakov Leslie, RN RN bp
--- NOTE | 2023-03-28 19:19 | ER ---
Nurse's Notes [facility] Name: Deidra Logan Age: 57 yrs Sex: Female : 1965 Arrival Date: 03/28/2023 Time: 17:57 Bed 14 Private MD: Diagnosis: Unspecified injury of head, initial encounter;Concussion without loss of consciousness;Postconcussional syndrome;Headache;Hypokalemia Presentation: 03/28 18:09 Chief complaint: Patient states: was bending over to wash hands and hit head on cabinet aa5 on Tuesday, denies LOC. Reports headache, neck pain, and nausea since then. 18:09 Coronavirus screen: At this time, the client does not indicate any symptoms associated aa5 with coronavirus-19. Ebola Screen: Patient denies travel to an Ebola-affected area in the 21 days before illness onset. Initial Sepsis Screen: Does the patient meet any 2 criteria? No. Patient's initial sepsis screen is negative. Does the patient have a suspected source of infection? No. Patient's initial sepsis screen is negative. Risk Assessment: Do you want to hurt yourself or someone else? Patient reports no desire to harm self or others. Onset of symptoms was March 2023. 18:09 Method Of Arrival: Ambulatory aa5 18:09 Acuity: JAN 4 aa5 Triage Assessment: 18:10 Headache History: The patient has had previous headaches and this one is different than bp previous episodes. General: Appears in no apparent distress. Behavior is calm, cooperative, appropriate for age. Pain: Pain currently is 6 out of 10 on a pain scale. Pain began 2-3 days ago. Also complains of no other associated symptoms. EENT: No deficits noted. Neuro: Reports dizziness, headache. Cardiovascular: No deficits noted. Respiratory: No deficits noted. GI: No signs and/or symptoms were reported involving the gastrointestinal system. : No signs and/or symptoms were reported regarding the genitourinary system. Derm: No deficits noted. Musculoskeletal: No deficits noted. Historical: - Allergies: 18:09 Amoxicillin; aa5 18:09 Ibuprofen; aa5 18:09 Naproxen; aa5 - Home Meds: 18:09 None [Active]; aa5 - PMHx: 18:09 Diverticulitis; aa5 - PSHx: 18:09 left fallopian tube and left ovary removed; aa5 18:10 Cholecystectomy; aa5 - Immunization history:: Adult Immunizations unknown. - Social history:: Smoking status: Patient denies any tobacco usage or history of. Screenin:10 [facility] ED Fall Risk Assessment (Adult) History of falling in the last 3 months, bp including since admission No falls in past 3 months (0 pts). Abuse screen: Denies threats or abuse. Denies injuries from another. Nutritional screening: No deficits noted. Tuberculosis screening: No symptoms or risk factors identified. Assessment: 18:10 General: SEE TRIAGE NOTE. bp 19:14 Reassessment: Patient appears in no apparent distress at this time. Patient and/or jb4 family updated on plan of care and expected duration. Pain level reassessed. Patient is alert, oriented x 3, equal unlabored respirations, skin warm/dry/pink. 19:58 Reassessment: Patient appears in no apparent distress at this time. Patient and/or jb4 family updated on plan of care and expected duration. Pain level reassessed. Patient is alert, oriented x 3, equal unlabored respirations, skin warm/dry/pink. Vital Signs: 18:09 BP 158 / 82; Pulse 58; Resp 16 S; Temp 98.1(TE); Pulse Ox 98% on R/A; Weight 72.57 kg aa5 (R); Height 5 ft. 6 in. (R); 19:58 BP 143 / 69; Pulse 55; Resp 16; Pulse Ox 98% on R/A; jb4 18:09 Body Mass Index 25.82 (72.57 kg, 167.64 cm) aa5 Anisa Coma Score: 19:26 Eye Response: spontaneous(4). Motor Response: obeys commands(6). Verbal Response: anyi oriented(5). Total: 15. NIH Stroke Scale Scores: 19:10 NIHSS Score: 0 anyi ED Course: 17:59 Patient arrived in ED. im 18:09 Arm band placed on. aa5 18:10 Patient has correct armband on for positive identification. Bed in low position. Call bp light in reach. Side rails up X2. 18:11 Triage completed. aa5 18:12 Elvin Strauss MD is Attending Physician. anyi 18:26 Yakov Leslie, BHAVYA is Primary Nurse. bp 18:43 Inserted saline lock: 20 gauge in right forearm, using aseptic technique. Blood bp collected. 19:02 CT Head C Spine In Process Unspecified. EDMS 19:17 Eric Miranda MD is Referral Physician. [facility] 19:59 No provider procedures requiring assistance completed. IV discontinued, intact, jb4 bleeding controlled, No redness/swelling at site. Pressure dressing applied. Administered Medications: 18:43 Drug: NS 0.9% IV 1000 ml Route: IV; Rate: 1 bolus; Site: right forearm; bp 18:43 Drug: Ondansetron IVP 4 mg Route: IVP; Site: right forearm; bp Medication: 18:10 VIS not applicable for this client. bp Outcome: 19:18 Discharge ordered by . anyi 19:59 Discharged to home ambulatory. jb4 19:59 Condition: stable 19:59 Discharge instructions given to patient, Instructed on discharge instructions, follow up and referral plans. medication usage, Demonstrated understanding of instructions, follow-up care, medications, Prescriptions given X 1. 19:59 Patient left the ED. jb4 NIH Stroke Scale - NIH Stroke Score Date: 03/28/2023 Time: 19:10 Total Score = 0 10. Dysarthria (speech clarity - read or repeat words) - 0(Normal) 11. Extinction and Inattention (visual/tactile/auditory/spatial/personal) - 0(No abnormality) 1a. Level of Consciousness (LOC) - 0(Alert) 1b. Level of Consciousness (LOC) (Month \T\ Age) - 0(Both) 1c. LOC Commands (Open \T\ Closes Eyes/Fish Egg Packer) - 0(Both) 2. Best Gaze (Lateral Gaze Paresis) - 0(Normal) 3. Visual Field Loss - 0(No visual loss) 4. Facial Palsy - 0(Normal) 5a. Left Arm: Motor (10-second hold) - 0(No drift) 5b. Right Arm: Motor (10-second hold) - 0(No drift) 6a. Left Leg: Motor (5-second hold - always test supine) - 0(No drift) 6b. Right Leg: Motor (5-second hold - always test supine) - 0(No drift) 7. Limb Ataxia (finger/nose \T\ heel/mosqueda - test with eyes open) - 0(Absent) 8. Sensory Loss (pinprick arms/legs/face) - 0(Normal) 9. Best Language: Aphasia (description/naming/reading) - 0(No aphasia) Initials: [facility] Signatures: Dispatcher [employer] Elvin Melchor MD MD cha Calderon, Audri RN RN aa5 Davonte Chandler RN RN jb4 Yakov Leslie, RN RN bp Zaria Wright
--- NOTE | 2023-03-28 19:42 | RAD REPORT ---
EXAM DESCRIPTION: CT - CTHCSPWOC - 03/28/2023 7:00 pm CLINICAL HISTORY: Headache;Pain COMPARISON: No comparisons TECHNIQUE: Axial thin cut noncontrast CT images of the head were obtained. Axial thin cut noncontrast CT images of the cervical spine were obtained. Multiplanar reformatted images were generated and reviewed. All CT scans are performed using dose optimization technique as appropriate and may include automated exposure control or mA/KV adjustment according to patient size. FINDINGS: CT HEAD WITHOUT CONTRAST: No acute hemorrhage, hydrocephalus or extra-axial collection is identified.No areas of brain edema or midline shift. The paranasal sinuses and mastoids are clear.The calvarium is intact. CT CERVICAL SPINE WITHOUT CONTRAST: No fracture or subluxation.Straightening of normal cervical lordosis, which may be positional or seco ndary to muscle spasm. Mild disc height loss with endplate spurring at C5-6 and C6-7. Mild foraminal narrowing at both levels bilaterally.No prevertebral soft tissues swelling is identified. IMPRESSION: No acute traumatic intracranial or cervical spine findings. Cervical spine degenerative changes as above.
[2023-03-28 20:16] VITALS: TEMP 98.1; O2SAT 98
[2023-03-28 20:18] VITALS: BP 143/69
== END 2023-03-28 19:59 | disposition home or self-care (01) ==
LOC: ER 17:57
DX: S06.0X0A Concussion without loss of consciousness, initial encounter (principal); E87.6 Hypokalemia; R51.9 Headache, unspecified; Z88.1 Allergy status to other antibiotic agents; Z88.5 Allergy status to narcotic agent; Z88.6 Allergy status to analgesic agent
CPT/HCPCS: 85025; 36415; 80053; 70450; 72125; 96374; 99284; J2405; J7030

== ENCOUNTER 2023-07-18 05:22 | Emergency (ER) | payer BC ==
--- OUTSIDE RECORDS SUMMARY | 2023-07-18 05:26 | XMS REPORT | Continuity of Care Document ---
:1965 Author Organization [facility] t Address [address] [place] [address] [place] [id number] Care Team Providers Name Role Phone PCP, PATIENT DOES NOT HAVE A Primary Care Physician Unavaila ble Referred, Self Attending Clinician Unavailable Elin Salmeron MD Attending Clinician Unknown, Attending Attending Clinician Unavailable ELIN SALMERON Attending Clinician Unavailable Doctor Unassigned, [place] Attending Clinician Unavailable PREETI BORREGO Attending Clinician Unavailable Referred, Self Admitting Clinician Unavailable Payers Payer Name Policy Type Policy Number Effective Date Expiration Date Mone [facility] [id number] 2012 00:00:00 2021 00:00 :00 Problems Condition Condition Condition Status Onset Resolution Last Treating Co mments Source Name Details Category Date Date Treatment Clinician Date No known No known Disease Unive rs active active ity of problems problems [facility] Allergies, Adverse Reactions, Alerts Allergy Allergy Status Severity Reaction(s) Onset Inactive Treating Comm ents Source Name Type Date Date Clinician AMOXICIL DRUG Active Rash 2021-10 Univers JUANJOSE INGREDI 10-16 ity of 00:00: [place] 00 [facility] IBUPROFE DRUG Active Swelling 2021-10 Univer s N INGREDI 10-16 ity of 00:00: [place] 00 [facility] Amoxicil Propensi Active Rash 2021-10 Univer s juanjose ty to 10-16 ity of adverse 00:00: [place] reaction 00 Medical Branch Ibuprofe Propensi Active Swelling 2021-10 Univ ers n ty to 10-16 ity of adverse 00:00: [place] reaction 00 Medical s Branch Naproxen Propensi Active Rash 2021-10 Univer s ty to 10-16 ity of adverse 00:00: [place] reaction Medical s Branch NAPROXEN DRUG Active Rash 2021-10 Univers INGREDI 10-16 ity of 00:00: [place] 00 [facility] Branch AMOXICIL DRUG Active Rash Univers JUANJOSE INGREDI 01-30 ity of 00:00: [place] [facility] IBUPROFE DRUG Active Swelling Univer s N INGREDI 01-30 ity of 00:00: [place] 00 [facility] Branch NO KNOWN Drug Active Univers ALLERGIE Class ity of [facility] Social History Social Habit Start Date Stop Date Quantity Comments Source Exposure to 2022-08-06 2022-08-16 Not sure [facility] SARS-CoV-2 00:00:00 09:31:00 [facility] (event) [place] Tobacco use and 2022-08-16 2022-08-16 Smokeless tobacco Un iversity of exposure 00:00:00 00:00:00 non-user [facility] Sex Assigned At [birth year] Universit y of 00:00:00 00:00:00 [facility] Smoking Status Start Date Stop Date Source Tobacco smoking consumption [facility] unknown [place] Never smoked tobacco [facility] Medications Ordered Filled Start Stop Current Ordering Indication Dosage Frequency Signature Comments Components Source Medication Medication Date Date Medication? Clinician (SIG) Name Name bromphenira 2021-10 Yes [id number] 5mL Take 5 mL Univers mine-pseudo 10-16 by mouth 4 it y of ephedrine-D 00:00[place] (BROMFED 00 times Medical DM) 2-30-10 daily as Bran ch mg/5 mL needed for syrup Congestion /Allergies . doxycycline 2021-10- No [id number] 100mg Take 1 Univers hyclate 100 10-16 tablet by it y of mg tablet 00:00: 05:59 mouth in [place] as 00 :00 the Medical morning Branch and 1 tablet in the evening. Do all this for 10 days. Vital Signs Vital Name Observation Time Observation Value Comments Source Systolic blood 2022-08-16 15:44:00 129 mm[Hg] Univer sity of pressure [facility] Diastolic blood 2022-08-16 15:44:00 82 mm[Hg] Unive rsity of pressure [facility] Heart rate 2022-08-16 15:44:00 59 /min Universi ty [facility] Body temperature 2022-08-16 15:44:00 36.89 Kathy [facility] Res[facility] rate 2022-08-16 15:44:00 16 /min [facility] Body height 2022-08-16 15:44:00 167.6 cm Universi ty [facility] Body weight 2022-08-16 15:44:00 [facility] 2022-08-16 15:44:00 24.86 kg/m2 [facility] Oxygen saturation in 2022-08-16 15:44:00 98 /min [facility] Arterial blood by [facility] Pulse oximetry Branch Procedures Procedure Date / Time Performed Performing Clinician [facility] e CONSENT/REFUSAL FOR 2022-08-16 15:30:34 Doctor Unassigned, No Un [facility] DIAGNOSIS AND Name [facility] TREATMENT Encounters Start End Encounter Admission Attending Care Care Encounter Source Date/Time Date/Time Type Type Clinicians Facility Department ID 2023-07-01 2023-07-01 Outpatient LUCIAN Shea [id number] [facility] 12:00:00 12:00:00 Self 34 [facility] 2023-06-21 2023-06-21 Outpatient SFA [facility] [id number] [place] 08:11:25 08:11:25 0912 [facility] 2022-12-22 2022-12-22 Outpatient MAURI DOTSON [id number] [place] 09:37:37 09:37:37 0315 [facility] 2022-08-16 2022-08-16 Elin Cueva [facility] [id number] [facility] 09:40:00 10:00:00 Care Unknown, Attending HEALTH [id number] [place] [id number] [place] HARMEET?BLEA [id number] Ar landon [address] MEDICAL OFFICE BUILDING 2022-08-16 2022-08-16 Outpatient R FAVIOLA, [facility] [id number] Univers 09:40:00 09:40:00 ELIN itdena of [facility] 2022-08-16 2022-08-16 Orders Doctor ANTWAN [id number] Univers 00:00:00 00:00:00 Only Unassigned, JAMES [id number] ity of [facility] [id number] [place] [id number] [address] 2014-02-26 2014-02-26 Outpatient R ELMO, [facility] [id number] Univers 08:30:00 08:30:00 PREETI gottlieb o f [facility] Results Test Description Test Time Test Comments Results Result Comments Source TSH, THIRD GENERATION 2022-12-23 06:45:07 Test Item Value Reference Range Interpretation Comme nts TSH, THIRD GENERATION (test code = 2821) 1.260 UIU/ML 0.400-4.100 COMPREHENSIVE METABOLIC [id number] 04:12:08 Test Item Value Reference Range Interpretation Comments GLUCOSE (test code = 99 MG/DL 70-99 2216) BUN (test code = 14 MG/DL 6-20 2207) CREATININE (test 0.71 MG/DL 0.60-1.30 code = 2214) eGFR (2020 CKD-EPI) 99 ML/MIN/1.73 >60 (test code = 15734) CALC BUN/CREAT (test 20 RATIO 6-28 code = 2235) SODIUM (test code = 141 MEQ/L 499-946 0236) POTASSIUM (test code 4.8 MEQ/L 3.5-5.4 = 222) CHLORIDE (test code 100 MEQ/L 95-107 = 2215) CARBON DIOXIDE (test 31 MEQ/L 19-31 code = 2206) CALCIUM (test code = 10.8 MG/DL 8.5-10.5 H 2208) PROTEIN, TOTAL (test 7.8 G/DL 6.1-8.3 code = 2229) ALBUMIN (test code = 4.8 G/DL 3.5-5.2 2200) CALC GLOBULIN (test 3.0 G/DL 1.9-3.7 code = 2240) CALC A/G RATIO (test 1.6 RATIO 1.0-2.6 code = 223) BILIRUBIN, TOTAL 0.4 MG/DL See_Comment [Automated message] (test code = 2206) The syste m which generated this result transmit jae reference range : <=1.2. The refe rence range was not u sed to interpret th is result as normal/abnormal . ALKALINE PHOSPHATASE 95 U/L 40-136 (test code = 2203) AST (test code = 20 U/L 9-40 2217) ALT (test code = 19 U/L 5-40 2218) LIPID [id number] 04:12:08 Test Item Value Reference Range Interpretation Comments CHOLESTEROL (test 304 MG/DL <200 H code = 2210) TRIGLYCERIDES (test 135 MG/DL <150 code = 2232) HDL CHOLESTEROL (test 97 MG/DL >39 code = 2220) CALC LDL CHOL (test 180 MG/DL <100 H NOTE: C ALCULATED LDL code = 2237) IS BASED ON LANCE-MEREDITH METHOD WHICHINCLUDES ADJUSTABLE TRIGLYCERIDE:VL DL CHOLESTEROL RAT IO.THIS FACTOR VARIES B Y MEASURED TRIGLY CERIDE AND NON-HDLCHOL ESTEROL CONCENTRATIONS WITH INCREASED CALCU LATED LDL SEENIN HIGH ER TRIGLYCERIDE OR LOWER NON-HDL SPECIME NS. FOR MOREINFORMATION , SEE CLIENT ANNOUNCE MENT AT [email or web address] [email or web address] LDL/HDL 1.86 RATIO <3.22 (test code = 2237) CBC W/AUTO DIFF WITH [id number] 02:27:21 Test Item Value Reference Range Interpretation Comments WBC (test code = 6.6 K/UL 3.5-11.0 1001) RBC (test code = 4.73 M/UL 3.80-5.40 1002) HEMOGLOBIN (test 14.7 G/DL 11.5-15.5 code = 1003) HEMATOCRIT (test 43.8 % 34.0-45.0 code = 1004) MCV (test code = 92.6 fL 80.0-99.0 1005) MCH (test code = 31.1 PG 25.0-33.0 1006) MCHC (test code = 33.6 G/DL 31.0-36.0 1007) RDW (test code = 12.3 % 11.5-15.0 1038) NEUTROPHILS (test 60.5 % code = 1008) LYMPHOCYTES (test 28.0 % code = 1010) MONOCYTES (test code 7.1 % = 1011) EOSINOPHILS (test 3.5 % code = 1012) BASOPHILS (test code 0.6 % = 1013) IMMATURE 0.3 % GRANULOCYTES (test code = 1036) NUCLEATED RBCS (test 0.0 /100 See_Comment [Autom ated message] code = 1065) WBC'S The system [employer] generated this result transmitted ref erence range: 0.0. The reference range was not used to int erpret this result as normal/abnormal . PLATELET COUNT (test 331 K/UL 130-400 code = 1015) ABSOLUTE NEUTROPHILS 3.99 K/UL 1.50-7.50 (test code = 1066) ABSOLUTE LYMPHOCYTES 1.85 K/UL 1.00-4.00 (test code = 1067) ABSOLUTE MONOCYTES 0.47 K/UL 0.20-1.00 (test code = 1068) ABSOLUTE EOSINOPHILS 0.23 K/UL 0.00-0.50 (test code = 1040) ABSOLUTE BASOPHILS 0.04 K/UL 0.00-0.20 (test code = 1069) ABS IMMATURE 0.02 K/UL 0.00-0.10 GRANULOCYTES (test code = 1020) ABS NUCLEATED RBCS 0.00 K/UL 0.00-0.11 [facility] has (test code = 48168) importan t pathology staff changes effective 12/08. New patholo gy staff will prov shellie uninterrupted, excellent patie nt care and clinic al consultation. S ee URL: [email or web address] UNLE SS OTHERWISE INDIC ATED, ALL TESTING PER FORMED AT [facility] [employer], [place]. [address] [place], [place] [id number] [place] [address] CHRIS DIRECTOR: Deepthi VILLEDA JAXON NUMBER [id number] CAP ACCREDITATION N O. [id number] DIAG MAMM BILATERAL CAD [id number] 14:35:53 - DIAG MAMM BILATERAL CAD DIGITALBILATERAL DIGITAL DIAGNOSTIC MAMMOGRAM WITH CAD: 02/26/2019CLINICAL: Right breast thickening. Current mammographic images were evaluated by either a [employer] M-Vu or a [employer] ImageChecker CAD (computer aided detection system). Comparison is made to exams dated 09/15/2018mammogram, 12/24/2016 mammogram, and 11/02/2014 mammogram - [facility]. There are scattered fibroglandular tissues in both breasts. There are nodular densities in the right breast that mo st likely represent benign fibroadenomas, cysts, or nodular breast tissue, however this must be confirmed with ultrasound. No suspicious mass, architectural distortion, malignant type calcification, orlymph node abnormality detected. INCOMPLETE ASSESSMENT: ADDITIONAL IMAGING EVALUATION RECOMMENDED Ult rasound pending for additional evaluation. Resume annual screening mammography in one year. - BREASTULTRASOUND BILATERALULTRASOUND OF BOTH BREASTS AND BOTH AXILLA: 02/26/2019Comparison is made to examsdated 09/15/2018 mammogram, 12/24/2016 mammogram, and 11/02/2014 mammogram - [facility]. Real-time ultrasound of both breasts [...] no sonographic evidence of malignancy. The masses inthe right breast are most likely due to fat necrosis. Patient has been informed that she should have screening mammogram and supplemental ultrasound in 1 year.Cristina Land M.D. dm/:02/26/2019 14:35:53 Provider Relations Coordinator: Vicki Graf FW RT(M), [facility]-FWletter sent: BIRADS 1-2 Combo FU Letter Mammogram BI-RADS: 0 Indeterminate Ultrasound BI-RADS: 2 BenignBREAST ULTRASOUND BILATERAL 2019-02-26 14:35:53 - DIAG MAMM BILATERAL CAD DIGITALBILATERAL DIGITAL DIAGNOSTIC MAMMOGRAM WITH CAD: 02/26/2019CLINICAL: Right breast thickening. Current mammographic images were evaluated by either a [employer] M-Vu or a [employer] ImageChecker CAD (computer aided detection system). Comparison is made to exams dated 09/15/2018mammogram, 12/24/2016 mammogram, and 11/02/2014 mammogram - [facility]. There are scattered fibroglandular tissues in both breasts. There are nodular densities in the right breast that most likely represent benign fibroadenomas, cysts, or nodular breast tissue, however this must be confirmed with ultrasound. No suspicious mass, architectural distortion, malignant type calcification, orlymph node abnormality detected. INCOMPLETE ASSESSMENT: ADDITIONAL IMAGING EVALUATION RECOMMENDED Ultrasound pending for additional evaluation. Resume annual screening mammography in one year. - BREAST ULTRASOUND BILATERALULTRASOUND OF BOTH BREASTS AND BOTH AXILLA: 02/26/2019Comparison is made to examsdated 09/15/2018 mammogram, 12/24/2016 mammogram, and 11/02/2014 mammogram - [facility]. Real-time ultrasound of both breasts [...] no sonographic evidence of malignancy. The masses inthe right breast are most likely due to fat necrosis. Patient has been informed that she should have screening mammogram and supplemental ultrasound in 1 year.Cristina Land M.D. dm/:02/26/2019 14:35:53 Provider Relations Coordinator: Vicki PACHECO RT(M), [facility]-FWletter sent: BIRADS 1-2 Combo FU Letter Mammogram BI-RADS: 0 Indeterminate Ultrasound BI-RADS: 2 BenignSCR MAMM BILATERAL CAD DIGITAL 2018-09-19 14:23:03 - SCR MAMM BILATERAL CAD DIGITALBILATERAL DIGITAL SCREENING MAMMOGRAM WITH CAD: 09/15/2018CLINICAL: Asymptomatic. Current mammographic images were evaluated by either a [employer] M-Vu or a [employer] ImageChecker CAD (computer aided detection system). Comparison is made to exams dated 12/24/2016 mammogram and 11/02/2014 mammogram - [facility]. There are scattered fibroglandular tissues in both breasts. No suspicious mass, architectural distortion, malignant type calcification, or lymph nodeabnormality detected. Breast architecture is stable compared to prior exams.IMPRESSION: NEGATIVEThere is no mammographic evidence of malignancy. Resume annual screening mammography in one year. Anatoly rodriguez/mia:09/19/2018 14:23:03 Attending Technologist: Jennifer Boss MM, [facility] MammographyImaging Technologist: Jackelyn Burt MM, [facility] Mammographyletter sent: BIRADS 1-2Normal Mammogram BI-RADS: 1 Negative
[2023-07-18] MEDS ORDERED: ACETAMINOPHEN 500 MG TAB ONE (06:19)
--- NOTE | 2023-07-18 06:44 | EDPHYS ---
Physician Documentation [facility] Name: Deidra Logan Age: 57 yrs Sex: Female : 1965 Arrival Date: 07/18/2023 Time: 05:22 Bed 7 Private MD: NORMAN Physician Elvin Strauss HPI: 07/18 05:54 This 57 yrs old Female presents to ER via Ambulatory with complaints of Knee anyi Pain. 05:54 The patient presents with decreased range of motion, pain, that is acute. The anyi complaints affect the medial aspect of right knee and right knee. Context: The problem was sustained outdoors, resulted from a repetitive motion, the patient can fully bear weight, the patient is able to ambulate, with mild difficulty, Problem is a result from a previous injury: No. Onset: The symptoms/episode began/occurred 3 day(s) ago. Modifying factors: The symptoms are alleviated by nothing. the symptoms are aggravated by nothing. Associated signs and symptoms: The patient has no apparent associated signs or symptoms. Severity of symptoms: At their worst the symptoms were moderate, in the emergency department the symptoms are unchanged. The patient has not experienced similar symptoms in the past. Historical: - Allergies: 05:53 Amoxicillin; as6 05:53 Ibuprofen; as6 05:53 Naproxen; as6 - PMHx: 05:53 Diverticulitis; as6 - PSHx: 05:53 Cholecystectomy; left fallopian tube and left ovary removed; as6 - Immunization history:: Adult Immunizations up to date, Client reports receiving the 2nd dose of the Covid vaccine. - Social history:: Smoking status: Patient denies any tobacco usage or history of. - Family history:: not pertinent. ROS: 05:54 Constitutional: Negative for fever, chills, and weight loss, Eyes: Negative for injury, anyi pain, redness, and discharge, ENT: Negative for injury, pain, and discharge, Neck: Negative for injury, pain, and swelling, Cardiovascular: Negative for chest pain, palpitations, and edema, Respiratory: Negative for shortness of breath, cough, wheezing, and pleuritic chest pain, Abdomen/GI: Negative for abdominal pain, nausea, vomiting, diarrhea, and constipation, Back: Negative for injury and pain, : Negative for injury, bleeding, discharge, and swelling, Skin: Negative for injury, rash, and discoloration, Neuro: Negative for headache, weakness, numbness, tingling, and seizure, Psych: Negative for depression, anxiety, suicide ideation, homicidal ideation, and hallucinations, Allergy/Immunology: Negative for hives, rash, and allergies, Endocrine: Negative for neck swelling, polydipsia, polyuria, polyphagia, and marked weight changes, Hematologic/Lymphatic: Negative for swollen nodes, abnormal bleeding, and unusual bruising, 05:54 MS/extremity: Positive for decreased range of motion, pain, of the medial aspect of right knee and right knee, Exam: 05:54 Constitutional: This is a well developed, well nourished patient who is awake, alert, anyi and in no acute distress. Head/Face: Normocephalic, atraumatic. Eyes: Pupils equal round and reactive to light, extra-ocular motions intact. Lids and lashes normal. Conjunctiva and sclera are non-icteric and not injected. Cornea within normal limits. Periorbital areas with no swelling, redness, or edema. ENT: Nares patent. No nasal discharge, no septal abnormalities noted. Tympanic membranes are normal and external auditory canals are clear. Oropharynx with no redness, swelling, or masses, exudates, or evidence of obstruction, uvula midline. Mucous membranes moist. Neck: Trachea midline, no thyromegaly or masses palpated, and no cervical lymphadenopathy. Supple, full range of motion without nuchal rigidity, or vertebral point tenderness. No Meningismus. Chest/axilla: Normal chest wall appearance and motion. Nontender with no deformity. No lesions are appreciated. Cardiovascular: Regular rate and rhythm with a normal S1 and S2. No gallops, murmurs, or rubs. Normal PMI, no JVD. No pulse deficits. Respiratory: Lungs have equal breath sounds bilaterally, clear to auscultation and percussion. No rales, rhonchi or wheezes noted. No increased work of breathing, no retractions or nasal flaring. Abdomen/GI: Soft, non-tender, with normal bowel sounds. No distension or tympany. No guarding or rebound. No evidence of tenderness throughout. Back: No spinal tenderness. No costovertebral tenderness. Full range of motion. Female : Normal external genitalia. Skin: Warm, dry with normal turgor. Normal color with no rashes, no lesions, and no evidence of cellulitis. Neuro: Awake and alert, GCS 15, oriented to person, place, time, and situation. Cranial nerves II-XII grossly intact. Motor strength 5/5 in all extremities. Sensory grossly intact. Cerebellar exam normal. Normal gait. Psych: Awake, alert, with orientation to person, place and time. Behavior, mood, and affect are within normal limits. 05:54 Musculoskeletal/extremity: Extremities: grossly normal except: noted in the right knee: decreased ROM, pain, ROM: limited active range of motion, limited passive range of motion, Pulses: are normal with no appreciated deficits, Perfusion: the patient is normally perfused throughout, Sensation intact. Compartment Syndrome exam of affected extremity: is normal. Joints: All joints are normal except the right knee displays pain at rest, painful range of motion, tenderness, Weight bearing: able to fully bear weight, without difficulty, DVT Exam: negative Homans' sign noted on exam, no appreciated bluish discoloration, no erythema, no increased warmth, pain, swelling, tenderness, Vital Signs: 05:51 BP 123 / 81; Pulse 69; Resp 18 S; Temp 97.9(TE); Pulse Ox 100% on R/A; Weight 72.57 kg as6 (R); Height 5 ft. 6 in. (R); Pain 8/10; 07:00 BP 125 / 67; Pulse 58; Resp 16; Pulse Ox 99% ; ko1 07:54 BP 118 / 71; Pulse 75; Resp 14; Pulse Ox 99% ; ko1 05:51 Body Mass Index 25.82 (72.57 kg, 167.64 cm) as6 05:51 Pain Scale: Adult as6 MDM: 05:50 Patient medically screened. [facility] 05:57 Differential diagnosis: closed fracture, contusion, tendonitis. Data reviewed: vital anyi signs, nurses notes, lab test result(s), EKG, radiologic studies, CT scan, plain films. Consideration of Admission/Observation Escalation of care including admission/observation considered. I considered the following discharge prescriptions or medication management in the emergency department Medications were administered in the Emergency Department. See MAR. Independent interpretation of the following test(s) in the Emergency Department X-Ray: My interpretation is no fx. Test considered but Not performed: X-ray: no fx, chronic changes. Care significantly affected by the following chronic conditions: Obesity, diverticulitis. 07/18 05:53 Order name: Knee Right 3 View XRAY [facility] 07/18 05:53 Order name: Knee Immobilizer; Complete Time: 06:57 anyi Administered Medications: 06:13 Drug: Acetaminophen PO 1000 mg PO once Route: PO; bp 06:57 Follow up: Response: No adverse reaction bp Disposition Summary: 07/18/23 06:43 Discharge Ordered Notes: Location: Home anyi Problem: new anyi Symptoms: have improved anyi Condition: Stable anyi Diagnosis - Pain in right knee anyi - Sprain of unspecified site of right knee anyi - Osteoarthritis of knee, unspecified anyi - Osteoarthritis, unspecified site anyi Followup: anyi - With: Private Physician - When: 2 - 3 days - Reason: Recheck today's complaints, Continuance of care, Re-evaluation by your physician Followup: anyi - With: Markie Pop MD - When: 2 - 3 days - Reason: Recheck today's complaints, Re-evaluation by your physician Discharge Instructions: - Discharge Summary Sheet ayni - Joint Pain anyi - Musculoskeletal Pain anyi - Acute Knee Pain, Adult anyi - How to Use Cold Therapy, [id number] anyi - Arthritis, [id number]-[id number] anyi - Patellofemoral Pain Syndrome anyi - Acute Knee Pain, Adult, Uvep-lv-Umym anyi - Joint Pain, Pmru-qx-Uzzy anyi Forms: - Medication Reconciliation Form [facility] - Thank You Letter [facility] - Antibiotic Education anyi - Prescription Opioid Use anyi - Patient Portal Instructions anyi - Leadership Thank You Letter anyi - Work release form bp Prescriptions: - acetaminophen-codeine 300-30 mg Oral tablet - take 2 tablet ORAL route every 6-8 hours as needed for pain; 20 tablet; anyi Refills: 0, Product Selection Permitted - Medrol (Karri) 4 mg Oral Tablets, Dose Pack - take 1 tablet ORAL route as directed - follow package instructions; 1 packet; anyi Refills: 0, Product Selection Permitted Signatures: Dispatcher [employer] Elvin Melchor MD MD cha Peltier, Brian, RN RN Vu Persaud RN RN as6
--- NOTE | 2023-07-18 06:44 | ER ---
Nurse's Notes [facility] Name: Deidra Logan Age: 57 yrs Sex: Female : 1965 Arrival Date: 07/18/2023 Time: 05:22 Bed 7 Private MD: Diagnosis: Pain in right knee;Sprain of unspecified site of right knee;Osteoarthritis of knee, unspecified;Osteoarthritis, unspecified site Presentation: 07/18 05:51 Chief complaint: Patient states: "I think I may have twisted my knee yesterday" pt c/o as6 right knee pain. Coronavirus screen: At this time, the client does not indicate any symptoms associated with coronavirus-19. Ebola Screen: No symptoms or risks identified at this time. Initial Sepsis Screen: Does the patient meet any 2 criteria? No. Patient's initial sepsis screen is negative. Does the patient have a suspected source of infection? No. Patient's initial sepsis screen is negative. Risk Assessment: Do you want to hurt yourself or someone else? Patient reports no desire to harm self or others. Onset of symptoms was July 17, 2023. 05:51 Method Of Arrival: Ambulatory as6 05:51 Acuity: JAN 4 as6 Triage Assessment: 06:00 General: Appears in no apparent distress. Behavior is appropriate for age. Pain: bp Complains of pain in right knee. Historical: - Allergies: 05:53 Amoxicillin; as6 05:53 Ibuprofen; as6 05:53 Naproxen; as6 - PMHx: 05:53 Diverticulitis; as6 - PSHx: 05:53 Cholecystectomy; left fallopian tube and left ovary removed; as6 - Immunization history:: Adult Immunizations up to date, Client reports receiving the 2nd dose of the Covid vaccine. - Social history:: Smoking status: Patient denies any tobacco usage or history of. - Family history:: not pertinent. Screenin:00 [facility] ED Fall Risk Assessment (Adult) History of falling in the last 3 months, bp including since admission No falls in past 3 months (0 pts). Abuse screen: Denies threats or abuse. Denies injuries from another. Nutritional screening: No deficits noted. Tuberculosis screening: No symptoms or risk factors identified. Assessment: 06:00 General: SEE TRIAGE NOTE. bp Vital Signs: 05:51 BP 123 / 81; Pulse 69; Resp 18 S; Temp 97.9(TE); Pulse Ox 100% on R/A; Weight 72.57 kg as6 (R); Height 5 ft. 6 in. (R); Pain 8/10; 07:00 BP 125 / 67; Pulse 58; Resp 16; Pulse Ox 99% ; ko1 07:54 BP 118 / 71; Pulse 75; Resp 14; Pulse Ox 99% ; ko1 05:51 Body Mass Index 25.82 (72.57 kg, 167.64 cm) as6 05:51 Pain Scale: Adult as6 ED Course: 05:25 Patient arrived in ED. mr 05:50 Elvin Strauss MD is Attending Physician. [facility] 05:53 Triage completed. as6 05:54 Arm band placed on. as6 06:00 Patient has correct armband on for positive identification. Bed in low position. Call bp light in reach. Side rails up X2. 06:13 Yakov Leslie, RN is Primary Nurse. bp 06:27 Knee Right 3 View XRAY In Process Unspecified. EDMS 06:42 Markie Pop MD is Referral Physician. [facility] 07:55 Provided Education on: na. ko1 07:55 No provider procedures requiring assistance completed. Patient did not have IV access ko1 during this emergency room visit. Knee immobilizer applied on right knee. Administered Medications: 06:13 Drug: Acetaminophen PO 1000 mg PO once Route: PO; bp 06:57 Follow up: Response: No adverse reaction bp Medication: 06:00 VIS not applicable for this client. bp Outcome: 06:43 Discharge ordered by . anyi 07:55 Discharged to home ambulatory, ko1 07:55 Condition: stable 07:55 Discharge instructions given to patient, Instructed on discharge instructions, follow up and referral plans. medication usage, Demonstrated understanding of instructions, follow-up care, medications, Prescriptions given X 2, 07:56 Patient left the ED. ko1 Signatures: Dispatcher [employer] EDHI Elvin Strauss MD MD cha Rivera, Mary, Reg Reg mr Yakov Leslie, RN RN bp Vu Pearl, BHAVYA RN as6 Gricel Medina RN RN ko1
[2023-07-18 08:44] VITALS: BP 118/71; O2SAT 99
--- NOTE | 2023-07-18 11:37 | RAD REPORT ---
EXAM DESCRIPTION: XR Right Knee, 3 Views CLINICAL HISTORY: The patient is 57 years old and is Female; PAIN [facility] MAIN TECHNIQUE: Three views of the right knee. COMPARISON: No relevant prior studies available. FINDINGS: BONES/JOINTS: Tricompartmental degenerative changes of the right knee, greatest in the l ateral compartment. No acute fracture. No dislocation. SOFT TISSUES: Unremarkable. IMPRESSION: No acute findings in the right knee. Electronically signed by: Devan Shell MD 07/18/2023 7:50 AM CDT Due to temporary technical issues with the PACS/Fluency reporting system, reports are being signed by the in house radiologist without review as a courtesy to ensure prompt reporting. The interpreting r adiologist is fully responsible for the content of the report.
== END 2023-07-18 07:56 | disposition home or self-care (01) ==
LOC: ER 05:22
DX: S83.91XA Sprain of unspecified site of right knee, initial encounter (principal); M17.11 Unilateral primary osteoarthritis, right knee; Z88.1 Allergy status to other antibiotic agents; Z88.6 Allergy status to analgesic agent
CPT/HCPCS: 99284

== ENCOUNTER 2025-07-02 00:33 | Emergency (ER) | payer BC ==
--- OUTSIDE RECORDS SUMMARY | 2025-07-02 00:53 | XMS REPORT | Continuity of Care Document ---
Author Name Unknown Address [address] [facility] [place] [address] [facility] Address [address] [facility] [address] [place] [address] Care Team Providers Care [employer] Supervisor Name Role Phone Pcp, Patient Does Not Have A Primary Care Physic colton Elin Selby MD Attending Clinician Referred, Self Attending Clinician Unavailable Elin Selby MD Attending Clinician Unknown, Attending Attending Clinician Unavailab ELIN Razo Attending Clinician Unavailable Doctor Unassigned, [place] Attending Clinician U PREETI Sargent Attending Clinician Unavaila ble Referred, Self Admitting Clinician Unavailable Payers Payer Name Policy Type Policy Number Effective Date Expirati on Date Source [id number] 2012 00:00:00 2021 00:00:00 Problems Condition Name Condition Details Condition Category Status Onset Date Resolution Date Last Treatment Date Treating Clinician Comments Source Esophageal reflux Esophageal reflux Disease Active 01-30 00:00: 00 [facility] Encounter for colorectal cancer screening Encounter for colorectal cancer screening Disease Active 01-30 00:00: 00 [facility] Essential (primary) hypertensi on Essential (primary) hypertensi on Problem [facility] 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 Problem [facility] Varicose veins of right lower extremity with other complicati ons Varicose veins of right lower extremity with other complicati ons Problem [facility] Occlusion and stenosis of bilateral carotid arteries Occlusion and stenosis of bilateral carotid arteries Problem [facility] 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 with intermitte nt claudicati on, bilateral legs 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 with intermitte nt claudicati on, bilateral legs Problem [facility] Polyneurop athy, unspecifie d Polyneurop athy, unspecifie d Problem [facility] Hyperlipid emia, unspecifie d Hyperlipid emia, unspecifie d Problem [facility] Varicose veins of left lower extremity with other complicati ons Varicose veins of left lower extremity with other complicati ons Problem [facility] No known active problems No known active problems Disease [facility] Allergies, Adverse Reactions, Alerts Allergy Name Allergy Type Status Severity Reaction(s) Onset Date Inactive Date Treating Clinician Comments Source ibuprofe n Propensi ty to adverse reaction to drug Active 2023-10 00:00: 00 Devonte Villar Amoxicil juanjose - Oral Propensi ty to adverse reaction to drug Active -15 00:00: 00 Devonte Villar AMOXICIL JUANJOSE DRUG INGREDI Active Rash 2021-10 00:00: 00 [facility] IBUPROFE N DRUG INGREDI Active Swelling 2021-10 00:00: 00 [facility] Amoxicil juanjose Propensi ty to adverse reaction s Active Rash 2021-10 00:00: 00 [facility] Ibuprofe n Propensi ty to adverse reaction s Active Swelling 2021-10 00:00: 00 [facility] Naproxen Propensi ty to adverse reaction s Active Rash 2021-10 00:00: 00 [facility] NAPROXEN DRUG INGREDI Active Rash 2021-10 00:00: 00 [facility] Naproxen Propensi ty to adverse reaction to drug Inactiv e 03-09 00:00: 00 Devonte Villar Amoxicil juanjose Propensi ty to adverse reaction to drug Inactiv e 06-27 00:00: 00 Devonte Villar Ibuprofe n Propensi ty to adverse reaction s Active Swelling 01-30 00:00: 00 [facility] AMOXICIL JUANJOSE DRUG INGREDI Active Rash 01-30 00:00: 00 [facility] IBUPROFE N DRUG INGREDI Active Swelling 01-30 00:00: 00 [facility] Amoxicil juanjose Propensi ty to adverse reaction s Active Rash 01-30 00:00: 00 [facility] NO KNOWN ALLERGIE S Drug Class Active [facility] naproxen naproxen Active Unknown [facility] amoxicil juanjose amoxicil juanjose Active Unknown [facility] ibuprofe n ibuprofe n Active Unknown [facility] Social History Social Habit Start Date Stop Date Quantity Comments Source History of Tobacco Use [facility] ASSERTION Not [facility] SARS-CoV-2 (event) 2022-08-06 00:00:00 2022-08-16 09:31:00 Not sure [facility] Tobacco use and exposure 2022-08-16 00:00:00 2022-08-16 00:00:00 Smokeless tobacco non-user [facility] Sex assigned at 1965 00:00:00 1965 00:00:00 [facility] Smoking Status Start Date Stop Date Source Tobacco smoking consumption unknown [facility] Never Smoker [facility] Medications Ordered Medication Name Filled Medication Name Start Date Stop Date Current Medication? Ordering Clinician Indication Dosage Frequency Signature (SIG) Comments Components Source Valium 5 MG Valium 5 MG 07-04 00:00: 00 No QD Valium 5 MG Eliquis 5 MG Eliquis 5 MG 01-30 00:00: 00 No 1{table t} BID Eliquis 5 MG Eliquis 5 mg tablet 01-30 00:00: 00 Yes mg Devonte Villar diphenhydrA MINE HCl 25 MG diphenhydrA MINE HCl 25 MG 12-25 00:00: 00 No QD diphenhydr AMINE HCl 25 MG METHYLPRED 4MG DPAK 2022-10 0 00:00: 00 Yes 4000 Devonte Villar bromphenira mine-pseudo ephedrine-D M (BROMFED DM) 2-30-10 mg/5 mL syrup 2021-10 00:00: 00 Yes [id number] 5mL Take 5 mL by mouth 4 (four) times daily as needed for Congestion /Allergies . [facility] TAKE 1 TABLET BY MOUTH TWICE DAILY UNTIL ALL TAKEN. 2021-10 00:00: 00 Yes Devonte Villar TAKE 5 ML BY MOUTH FOUR TIMES DAILY NEEDED FOR CONGESTION OR ALLERGIES 2021-10 00:00: 00 Yes Devonte Villar doxycycline hyclate 100 mg tablet 2021-10 00:00: 00 08-27 05:59 :00 No [id number] 100mg Take 1 tablet by mouth in the morning and 1 tablet in the evening. Do all this for 10 days. [facility] Bactrim DS 800 mg-160 mg tablet 05-29 00:00: 00 Yes 1mg Devonte Villar hydrochloro thiazide 12.5 mg tablet 07-04 00:00: 00 Yes 1mg Devonte Villar metronidazo le 500 mg tablet 11-11 00:00: 00 Yes 1mg Devonte Villar prednisone 20 mg tablet 10-30 00:00: 00 Yes 2mg Devonte Villar azithromyci n 250 mg tablet 10-30 00:00: 00 Yes 1mg Devonte Villar loratadine 10 mg tablet 10-30 00:00: 00 Yes 1mg Devonte Villar azithromyci n 250 mg tablet 2015-10 00:00: 00 Yes 1mg Devonte Villar prednisone 20 mg tablet 2015-10 00:00: 00 Yes 2mg Devonte Villar cetirizine 5 mg-pseudoep hedrine ER 120 mg tablet,exte nded release,12h r 2015-10 00:00: 00 Yes 1mg Devonte Villar benzonatate 100 mg capsule 2015-10 00:00: 00 Yes 2mg Devonte Villar prednisone 10 mg tablets in a dose pack 03-10 00:00: 00 Yes 1mg Devonte Villar prednisone 20 mg tablet 03-09 00:00: 00 Yes 1mg Devonte Villar naproxen 500 mg tablet 02-24 00:00: 00 Yes 1mg Devonte Villar omeprazole (PRILOSEC) 20 mg capsule 2013-10 13:10: 05 Yes 20mg Take 20 mg by mouth. [facility] metroNIDAZO LE (FLAGYL) 500 mg tablet 2013-10 13:10: 04 Yes 500mg Take 500 mg by mouth every 8 (eight) hours. [facility] Vitamin D Vitamin D No Vitamin D Immunizations Ordered Immunization Name Filled Immunization Name Date Status Comments Source Influenza, injectable, Madin Emmie Canine Kidney, preservative-free, quadrivalent Influenza, injectable, Madin Robinson Canine Kidney, preservative-free, quadrivalent 2024-08-29 00:00:00 Completed Devonte Ely Villar Influenza, seasonal, inj Influenza, seasonal, inj 2020-07-31 00:00:00 Completed Devonte Ely Villar influenza, injectable influenza, injectable 2017-08-25 00:00:00 Completed Devonte Ely Villar Influenza, seasonal, inj Influenza, seasonal, inj 2016-08-28 00:00:00 Completed Devonte Villar Vital Signs Vital Name Observation Time Observation Value Comments S ource height 2024-10-26 09:30:00 66 [in_i] [place] [facility] weight-kg 2024-10-26 09:30:00 72.58 kg [place] [facility] bmi 2024-10-26 09:30:00 25.82 kg/m2 Devorah pilo [facility] respiratory rate 2024-10-26 09:30:00 16 /min [facility] heart rate 2024-10-26 09:30:00 55 /min [facility] blood pressure systolic 2024-10-26 09:30:00 122 mm[Hg] [facility] blood pressure diastolic 2024-10-26 09:30:00 80 mm[Hg] [facility] height 2024-08-03 09:30:00 66 [in_i] [facility] weight-kg 2024-08-03 09:30:00 72.57 kg [facility] bmi 2024-08-03 09:30:00 25.82 kg/m2 [facility] heart rate 2024-08-03 09:30:00 61 /min [facility] blood pressure systolic 2024-08-03 09:30:00 126 mm[Hg] [facility] blood pressure diastolic 2024-08-03 09:30:00 80 mm[Hg] [facility] height 2024-04-04 09:00:00 66 [in_i] [facility] weight-kg 2024-04-04 09:00:00 72.12 kg [facility] bmi 2024-04-04 09:00:00 25.66 kg/m2 [facility] respiratory rate 2024-04-04 09:00:00 16 /min [facility] heart rate 2024-04-04 09:00:00 66 /min [facility] blood pressure systolic 2024-04-04 09:00:00 110 mm[Hg] [facility] blood pressure diastolic 2024-04-04 09:00:00 70 mm[Hg] [facility] Systolic blood pressure 2022-08-16 15:44:00 129 mm[Hg] [facility] Diastolic blood pressure 2022-08-16 15:44:00 82 mm[Hg] [facility] Heart rate 2022-08-16 15:44:00 59 /min [facility] Body temperature 2022-08-16 15:44:00 36.89 Kathy [facility] Respiratory rate 2022-08-16 15:44:00 16 /min [facility] Body height 2022-08-16 15:44:00 167.6 cm [facility] Body weight 2022-08-16 15:44:00 69.854 kg [facility] BMI 2022-08-16 15:44:00 24.86 kg/m2 [facility] Oxygen saturation in Arterial blood by Pulse oximetry 2022-08-16 15:44:00 98 /min [facility] BP Systolic 2024-09-04 11:04:00 130 mm[Hg] Step hen F Jian BP Diastolic 2024-09-04 11:04:00 66 mm[Hg] Jb phen F Jian Weight Measured 2024-09-04 11:04:00 160.00 pounds Devonte F Jian Height Measured 2024-09-04 11:04:00 65.00 inches Devonte F Jian Body Temperature 2024-09-04 11:04:00 97.90 degrees Devonte F Jian Heart Rate 2024-09-04 11:04:00 59.00 /min Evelin en F Jian Respiratory Rate 2024-09-04 11:04:00 17.00 /min Devonte F Jian BP Systolic 2024-08-29 08:23:00 123 mm[Hg] Step hen F Jian BP Diastolic 2024-08-29 08:23:00 65 mm[Hg] Jb phen F Jian Weight Measured 2024-08-29 08:23:00 161.60 pounds Devonte F Jian Height Measured 2024-08-29 08:23:00 65.00 inches Devonte F Jian Body Temperature 2024-08-29 08:23:00 98.20 degrees Devonte F Jian Heart Rate 2024-08-29 08:23:00 60.00 /min Evelin en F Jian Respiratory Rate 2024-08-29 08:23:00 18.00 /min Devonte F Jian Weight Measured 2024-02-29 10:02:00 164.40 pounds Devonte F Jian Height Measured 2024-02-29 10:02:00 65.00 inches Devonte F Jian Body Temperature 2024-02-29 10:02:00 98.10 degrees Devonte F Jian Heart Rate 2024-02-29 10:02:00 66.00 /min Evelin en F Jian Respiratory Rate 2024-02-29 10:02:00 Devonte F Jian BP Systolic 2024-02-29 10:02:00 136 mm[Hg] Step hen F Jian BP Diastolic 2024-02-29 10:02:00 86 mm[Hg] Jb phen F Jian BP Systolic 2023-06-21 08:15:00 116 mm[Hg] Step hen F Jian BP Diastolic 2023-06-21 08:15:00 73 mm[Hg] Jb phen F Jian Weight Measured 2023-06-21 08:15:00 163.20 pounds Devonte F Jian Height Measured 2023-06-21 08:15:00 65.00 inches Devonte F Jian Body Temperature 2023-06-21 08:15:00 98.20 degrees Devonte F Jian Heart Rate 2023-06-21 08:15:00 68.00 /min Evelin en F Jian Respiratory Rate 2023-06-21 08:15:00 Devonte F Jian BP Systolic 2022-12-22 09:38:00 129 mm[Hg] Step hen F Jian BP Diastolic 2022-12-22 09:38:00 69 mm[Hg] Jb phen F Jian Weight Measured 2022-12-22 09:38:00 161.00 pounds Devonte F Jian Height Measured 2022-12-22 09:38:00 65.00 inches Devonte F Jian Body Temperature 2022-12-22 09:38:00 98.20 degrees Devonte F Jian Heart Rate 2022-12-22 09:38:00 59.00 /min Evelin en F Jian Respiratory Rate 2022-12-22 09:38:00 16.00 /min Devonte F Jian BP Systolic 2020-09-11 08:42:00 128 mm[Hg] Step hen F Ijan BP Diastolic 2020-09-11 08:42:00 83 mm[Hg] Jb phen F Jian Weight Measured 2020-09-11 08:42:00 157.20 pounds Devonte F Jian Height Measured 2020-09-11 08:42:00 65.00 inches Devonte F Jian Body Temperature 2020-09-11 08:42:00 98.50 degrees Devonte F Jian Heart Rate 2020-09-11 08:42:00 65.00 /min Evelin en F Jian Respiratory Rate 2020-09-11 08:42:00 Devonte F Jian BP Systolic 2020-08-21 09:26:00 108 mm[Hg] Step hen F Jian BP Diastolic 2020-08-21 09:26:00 63 mm[Hg] Jb phen F Jian Weight Measured 2020-08-21 09:26:00 157.10 pounds Devonte F Jian Height Measured 2020-08-21 09:26:00 65.00 inches Devonte F Jian Body Temperature 2020-08-21 09:26:00 98.00 degrees Devonte F Jian Heart Rate 2020-08-21 09:26:00 59.00 /min Evelin en F Jian Respiratory Rate 2020-08-21 09:26:00 Devonte F Jian BP Systolic 2020-08-15 08:23:00 102 mm[Hg] Step hen F Jian BP Diastolic 2020-08-15 08:23:00 68 mm[Hg] Jb phen F Jian Weight Measured 2020-08-15 08:23:00 158.00 pounds Devonte F Jian Height Measured 2020-08-15 08:23:00 65.00 inches Devonte F Jian Body Temperature 2020-08-15 08:23:00 98.60 degrees Devonte F Jian Heart Rate 2020-08-15 08:23:00 58.00 /min Evelin en F Jian Respiratory Rate 2020-08-15 08:23:00 Devonte F Jian BP Systolic 2020-07-31 10:07:00 129 mm[Hg] Step hen F Jian BP Diastolic 2020-07-31 10:07:00 75 mm[Hg] Jb phen F Jian Weight Measured 2020-07-31 10:07:00 155.00 pounds Devonte F Jian Height Measured 2020-07-31 10:07:00 65.00 inches Devonte F Jian Body Temperature 2020-07-31 10:07:00 99.00 degrees Devonte F Jian Heart Rate 2020-07-31 10:07:00 63.00 /min Evelin en F Jian Respiratory Rate 2020-07-31 10:07:00 Devonte F Jian BP Systolic 2019-05-29 09:04:00 129 mm[Hg] Step hen F Jian BP Diastolic 2019-05-29 09:04:00 77 mm[Hg] Jb phen F Jian Weight Measured 2019-05-29 09:04:00 162.40 pounds Devonte F Jian Height Measured 2019-05-29 09:04:00 65.00 inches Devonte F Jian Body Temperature 2019-05-29 09:04:00 98.00 degrees Devonte F Jian Heart Rate 2019-05-29 09:04:00 65.00 /min Evelin en F Jian Respiratory Rate 2019-05-29 09:04:00 16.00 /min Devonte Villar BP Systolic 2018-07-04 10:57:00 104 mm[Hg] Step hen F Jian BP Diastolic 2018-07-04 10:57:00 71 mm[Hg] Jb phen F Jian Weight Measured 2018-07-04 10:57:00 160.00 pounds Devonte Villar Height Measured 2018-07-04 10:57:00 65.00 inches Devonte Villar Body Temperature 2018-07-04 10:57:00 98.10 degrees Devonte Villar Heart Rate 2018-07-04 10:57:00 55.00 /min Evelin en F iJan Respiratory Rate 2018-07-04 10:57:00 16.00 /min Devonte Villar BP Systolic 2017-11-07 09:46:00 136 mm[Hg] Emanuel hen F Jian BP Diastolic 2017-11-07 09:46:00 65 mm[Hg] Jb phen Ely Villar Weight Measured 2017-11-07 09:46:00 163.60 pounds Devonte Villar Height Measured 2017-11-07 09:46:00 65.00 inches Devonte Villar Body Temperature 2017-11-07 09:46:00 97.90 degrees Devonte Villar Heart Rate 2017-11-07 09:46:00 76.00 /min Evelin en F Jian Respiratory Rate 2017-11-07 09:46:00 Devonte Villar Procedures Procedure Date / Time Performed Performing Clinician Source CONSENT/REFUSAL FOR DIAGNOSIS AND TREATMENT 2022-08-16 15:30:34 Doctor Unassigned, [place] [facility] [id number] Endometrial Bx W/wo Endocervix Bx W/o Dilat Spx 2020-08-21 00:00:00 Devonte Villar 05283 Ecg Routine Ecg W/least 12 Lds W/i r 2015-06-27 00:00:00 Devonte Villar Encounters Start Date/Time End Date/Time Encounter Type Admission Type Attending Clinicians Care Facility Care Department Encounter ID Source 2024-04-04 09:04:02 Outpatient Merna Zamora [facility] [id number] [facility] 2022-08-16 00:00:00 2025-01-31 21:32:14 Letter (Out) Elin Selby [facility] [id number] [facility] 2024-10-26 00:00:00 2024-10-26 00:00:00 Office Visit- Est Pt.- Level 4 CLS CLS [id number] [facility] 2024-10-16 00:00:00 2024-10-16 00:00:00 (Rflx Study) Reflux Study CLS CLS [id number] [facility] 2024-09-28 00:00:00 2024-09-28 00:00:00 (TEL) CLS CLS [id number] [facility] 2024-09-05 00:00:00 2024-09-05 00:00:00 (TEL) CLS CLS [id number] [facility] [facility] 2024-09-04 10:59:08 2024-09-04 10:59:08 Outpatient SFA SFA [id number] Devonte Villar 2024-09-04 00:00:00 2024-09-04 00:00:00 Outpatient Visit SFA [id number] Devonte Villar 2024-08-29 08:14:44 2024-08-29 08:14:44 Outpatient SFA SFA [id number] Devonte Villar 2024-08-29 00:00:00 2024-08-29 00:00:00 Outpatient Visit SFA [id number] Devonte Villar 2024-08-03 00:00:00 2024-08-03 00:00:00 Office Visit- Est Pt.- Level 4 CLS CLS [id number] [facility] 2024-07-16 00:00:00 2024-07-16 00:00:00 (TEL) CLS CLS [id number] [facility] 2024-07-16 00:00:00 2024-07-16 00:00:00 (TEL) CLS CLS [id number] [facility] 2024-07-13 08:00:00 2024-07-13 08:00:00 Outpatient EL Referred, Self HCACL HANY [id number] [facility] 2024-07-10 00:00:00 2024-07-10 00:00:00 (TEL) CLS CLS [id number] [facility] [facility] 2024-07-06 00:00:00 2024-07-06 00:00:00 (TEL) CLS CLS [id number] [facility] 2024-07-06 00:00:00 2024-07-06 00:00:00 (Rflx Study) Reflux Study CLS CLS [id number] [facility] 2024-07-05 00:00:00 2024-07-05 00:00:00 (Venaseal) Venaseal Ablation CLS CLS [id number] [place] [facility] 2024-07-04 00:00:00 2024-07-04 00:00:00 (TEL) CLS CLS [id number] [place] [facility] 2024-07-04 00:00:00 2024-07-04 00:00:00 (TEL) CLS CLS [id number] [facility] 2024-06-01 00:00:00 2024-06-01 00:00:00 (TEL) CLS CLS [id number] [place] [facility] 2024-05-09 00:00:00 2024-05-09 00:00:00 (TEL) CLS CLS [id number] [place] [facility] 2024-04-04 00:00:00 2024-04-04 00:00:00 Office Visit- Est Pt.- Level 4 CLS CLS [id number] [place] [facility] 2024-02-29 09:59:15 2024-02-29 09:59:15 Outpatient SFA SFA [id number] Devonte Villar 2024-02-29 00:00:00 2024-02-29 00:00:00 Outpatient Visit SFA [id number] Devonte Villar 2023-07-01 12:00:00 2023-07-01 12:00:00 Outpatient EL Referred, Self HCACL HANY [id number] [facility] 2023-06-21 08:11:25 2023-06-21 08:11:25 Outpatient [facility] [id number] Devonte Villar 2022-12-22 09:37:37 2022-12-22 09:37:37 Outpatient [facility] [id number] Devonte Villar 2022-08-16 09:40:00 2022-08-16 10:00:00 Urgent Care Bal Elin Unknown, [facility] [id number] [facility] 2022-08-16 09:40:00 2022-08-16 09:40:00 Outpatient Pilo ELIN SELBY [facility] [id number] [facility] 2022-08-16 00:00:00 2022-08-16 00:00:00 Orders Only Doctor Unassigned, [place] [facility] [id number] [facility] 2014-02-26 08:30:00 2014-02-26 08:30:00 Outpatient PREETI GAY [facility] [id number] [facility] Results Test Description Test Time Test Comments Results Result Co mments Source Devonte VillarCOMPREHENSIVE METABOLIC [id number] 00:00:00* Test Item Value Reference Range Interpretation Comme nts GLUCOSE (test code = 2217) 97 MG/DL BUN (test code = 2208) 16 MG/DL CREATININE (test code = 2214) 0.77 MG/DL eGFR (2020 CKD-EPI) (test co de = 42355) 89 ML/MIN/1.73 CALC BUN/CREAT (test code = 2235) 21 RATIO SODIUM (test code = 2231) 138 MEQ/L POTASSIUM (test code = 2228) 5.4 MEQ/L CHLORIDE (test code = 2215) 101 MEQ/L CARBON DIOXIDE (test code = 2206) 26 MEQ/L CALCIUM (test code = 2209) 9.9 MG/DL PROTEIN, TOTAL (test code = 2229) 6.8 G/DL ALBUMIN (test code = 2201) 4.3 G/DL CALC GLOBULIN (test code = 2240) 2.5 G/DL CALC A/G RATIO (test code = 2234) 1.7 RATIO BILIRUBIN, TOTAL (test code = 2207) 0.4 MG/DL ALKALINE PHOSPHATASE (test code = 2204) 93 U/L AST (test code = 2218) 17 U/L ALT (test code = 2219) 13 U/L Devonte VillarLIPID [id number] 00:00:00* Test Item Value Reference Range Interpretation Comme nts CHOLESTEROL (test code = 2210) 243 MG/DL TRIGLYCERIDES (test code = 2232) 85 MG/DL HDL CHOLESTEROL (test code = 2220) 84 MG/DL CALC LDL CHOL (test code = 2237) 141 MG/DL RISK RATIO LDL/HDL (test cod e = 2238) 1.68 RATIO Devonte VillarCBC W/AUTO [id number] 00:00:00* Test Item Value Reference Range Interpretation Comme nts WBC (test code = 1001) 5.7 K/UL RBC (test code = 1002) 4.38 M/UL HEMOGLOBIN (test code = 1003) 13.9 G/DL HEMATOCRIT (test code = 1004) 40.2 % MCV (test code = 1005) 91.8 fL MCH (test code = 1006) 31.7 PG MCHC (test code = 1007) 34.6 G/DL RDW (test code = 1038) 12.4 % NEUTROPHILS (test code = 1008) 48.3 % LYMPHOCYTES (test code = 1010) 34.2 % MONOCYTES (test code = 1011) 9.0 % EOSINOPHILS (test code = 1012) 7.6 % BASOPHILS (test code = 1013) 0.7 % IMMATURE GRANULOCYTES (test code = 1036) 0.2 % NUCLEATED RBCS (test code = 1065) 0.0 /100WBC'S PLATELET COUNT (test code = 1015) 315 K/UL ABSOLUTE NEUTROPHILS (test c ode = 1066) 2.73 K/UL ABSOLUTE LYMPHOCYTES (test c ode = 1067) 1.93 K/UL ABSOLUTE MONOCYTES (test cod e = 1068) 0.51 K/UL ABSOLUTE EOSINOPHILS (test c ode = 1040) 0.43 K/UL ABSOLUTE BASOPHILS (test cod e = 1069) 0.04 K/UL ABS IMMATURE GRANULOCYTES (t est code = 1020) 0.01 K/UL ABS NUCLEATED RBCS (test cod e = 65364) 0.00 K/UL [facility] [id number] 00:00:00* Test Item Value Reference Range Interpretation Comme nts WBC (test code = 1001) 5.7 K/UL RBC (test code = 1002) 4.38 M/UL HEMOGLOBIN (test code = 1003) 13.9 G/DL HEMATOCRIT (test code = 1004) 40.2 % MCV (test code = 1005) 91.8 fL MCH (test code = 1006) 31.7 PG MCHC (test code = 1007) 34.6 G/DL RDW (test code = 1038) 12.4 % NEUTROPHILS (test code = 1008) 48.3 % LYMPHOCYTES (test code = 1010) 34.2 % MONOCYTES (test code = 1011) 9.0 % EOSINOPHILS (test code = 1012) 7.6 % BASOPHILS (test code = 1013) 0.7 % IMMATURE GRANULOCYTES (test code = 1036) 0.2 % NUCLEATED RBCS (test code = 1065) 0.0 /100WBC'S PLATELET COUNT (test code = 1015) 315 K/UL ABSOLUTE NEUTROPHILS (test c ode = 1066) 2.73 K/UL ABSOLUTE LYMPHOCYTES (test c ode = 1067) 1.93 K/UL ABSOLUTE MONOCYTES (test cod e = 1068) 0.51 K/UL ABSOLUTE EOSINOPHILS (test c ode = 1040) 0.43 K/UL ABSOLUTE BASOPHILS (test cod e = 1069) 0.04 K/UL ABS IMMATURE GRANULOCYTES (t est code = 1020) 0.01 K/UL ABS NUCLEATED RBCS (test cod e = 93708) 0.00 K/UL [facility]AUTO [id number] 00:00:00* Test Item Value Reference Range Interpretation Comme nts WBC (test code = 1001) 5.7 K/UL RBC (test code = 1002) 4.38 M/UL HEMOGLOBIN (test code = 1003) 13.9 G/DL HEMATOCRIT (test code = 1004) 40.2 % MCV (test code = 1005) 91.8 fL MCH (test code = 1006) 31.7 PG MCHC (test code = 1007) 34.6 G/DL RDW (test code = 1038) 12.4 % NEUTROPHILS (test code = 1008) 48.3 % LYMPHOCYTES (test code = 1010) 34.2 % MONOCYTES (test code = 1011) 9.0 % EOSINOPHILS (test code = 1012) 7.6 % BASOPHILS (test code = 1013) 0.7 % IMMATURE GRANULOCYTES (test code = 1036) 0.2 % NUCLEATED RBCS (test code = 1065) 0.0 /100WBC'S PLATELET COUNT (test code = 1015) 315 K/UL ABSOLUTE NEUTROPHILS (test c ode = 1066) 2.73 K/UL ABSOLUTE LYMPHOCYTES (test c ode = 1067) 1.93 K/UL ABSOLUTE MONOCYTES (test cod e = 1068) 0.51 K/UL ABSOLUTE EOSINOPHILS (test c ode = 1040) 0.43 K/UL ABSOLUTE BASOPHILS (test cod e = 1069) 0.04 K/UL ABS IMMATURE GRANULOCYTES (t est code = 1020) 0.01 K/UL ABS NUCLEATED RBCS (test cod e = 79893) 0.00 K/UL Devonte Graves AustinHPV HIGH RISK WITH GENOTYPE, [id number] 00:00:00* Test Item Value Reference Range Interpretation Comme nts HPV HIGH RISK INTERP (test c ode = 32817) NEGATIVE HPV 16 (test code = 16377) NEGATIVE HPV 18 (test code = 98559) NEGATIVE HPV, HR, OTHER GENOTYPES (te st code = 56287) NEGATIVE PDFE (test code = PDFReport) PDF Devonte Graves AustinPAP TEST, THINPREP, [id number] 00:00:00* Test Item Value Reference Range Interpretation Comme nts SOURCE: (test code = 8001) Cervical/Endocervical SLIDES: (test code = 8011) 1 LMP: (test code = 8021) MENOPAUSe SPECIMEN ADEQUACY: (test code = 38459) (NOTE) INTERPRETATION: (test code = 33355) NILM/NO EPITH. ABNORMALITY;SEE BELOW OTHER COMMENTS: (test code = 8081) (NOTE) SCARFER OPERATOR: (test code = 8101) MICHEL HUMPHRIES(ASCP)IAC LOCATION: (test code = 99301) (NOTE) CPT: (test code = 8140) (NOTE) Devonte VillarLIPID [id number] 00:00:00* Test Item Value Reference Range Interpretation Comme nts CHOLESTEROL (test code = 2210) 262 MG/DL TRIGLYCERIDES (test code = 2232) 141 MG/DL HDL CHOLESTEROL (test code = 2220) 78 MG/DL CALC LDL CHOL (test code = 2237) 157 MG/DL RISK RATIO LDL/HDL (test cod e = 2238) 2.01 RATIO Devonte Graves AustinHPV HIGH RISK WITH GENOTYPE, [id number] 00:00:00* Test Item Value Reference Range Interpretation Comme nts HPV HIGH RISK INTERP (test c ode = 45634) NEGATIVE HPV 16 (test code = 65402) NEGATIVE HPV 18 (test code = 03654) NEGATIVE HPV, HR, OTHER GENOTYPES (te st code = 03611) NEGATIVE PDFE (test code = PDFReport) PDF Devonte VillarHIV 1/2 4TH GEN, RFLX [id number] 00:00:00* Test Item Value Reference Range Interpretation Comme nts HIV 1/2 4TH GEN, RFLX CONF ( test code = 3514) NON-REACTIVE Devonte VillarLIPID [id number] 00:00:00* Test Item Value Reference Range Interpretation Comme nts CHOLESTEROL (test code = 2210) 262 MG/DL TRIGLYCERIDES (test code = 2232) 141 MG/DL HDL CHOLESTEROL (test code = 2220) 78 MG/DL CALC LDL CHOL (test code = 2237) 157 MG/DL RISK RATIO LDL/HDL (test cod e = 2238) 2.01 RATIO Devonte VillarPAP TEST, THINPREP, [id number] 00:00:00* Test Item Value Reference Range Interpretation Comme nts SOURCE: (test code = 8001) Cervical/Endocervical SLIDES: (test code = 8011) 1 LMP: (test code = 8021) MENOPAUSe SPECIMEN ADEQUACY: (test code = 69774) (NOTE) INTERPRETATION: (test code = 71845) NILM/NO EPITH. ABNORMALITY;SEE BELOW OTHER COMMENTS: (test code = 8081) (NOTE) SCARFER OPERATOR: (test code = 8101) MICHEL HUMPHRIES(ASCP)IAC LOCATION: (test code = 88078) (NOTE) CPT: (test code = 8140) (NOTE) Devonte VillarHIV 1/2 4TH GEN, RFLX [id number] 00:00:00* Test Item Value Reference Range Interpretation Comme nts HIV 1/2 4TH GEN, RFLX CONF ( test code = 3514) NON-REACTIVE Devonte VillarHPV HIGH RISK WITH GENOTYPE, [id number] 00:00:00* Test Item Value Reference Range Interpretation Comme nts HPV HIGH RISK INTERP (test c ode = 08713) NEGATIVE HPV 16 (test code = 29447) NEGATIVE HPV 18 (test code = 68444) NEGATIVE HPV, HR, OTHER GENOTYPES (te st code = 00507) NEGATIVE PDFE (test code = PDFReport) PDF Devonte VillarLIPID [id number] 00:00:00* Test Item Value Reference Range Interpretation Comme nts CHOLESTEROL (test code = 2210) 262 MG/DL TRIGLYCERIDES (test code = 2232) 141 MG/DL HDL CHOLESTEROL (test code = 2220) 78 MG/DL CALC LDL CHOL (test code = 2237) 157 MG/DL RISK RATIO LDL/HDL (test cod e = 2238) 2.01 RATIO Devonte VillarPAP TEST, THINPREP, [id number] 00:00:00* Test Item Value Reference Range Interpretation Comme nts SOURCE: (test code = 8001) Cervical/Endocervical SLIDES: (test code = 8011) 1 LMP: (test code = 8021) MENOPAUSe SPECIMEN ADEQUACY: (test code = 37997) (NOTE) INTERPRETATION: (test code = 06082) NILM/NO EPITH. ABNORMALITY;SEE BELOW OTHER COMMENTS: (test code = 8081) (NOTE) SCARFER OPERATOR: (test code = 8101) MICHEL HUMPHRIES(ASCP)IAC LOCATION: (test code = 20383) (NOTE) CPT: (test code = 8140) (NOTE) Devonte VillarHIV 1/2 4TH GEN, RFLX [id number] 00:00:00* Test Item Value Reference Range Interpretation Comme nts HIV 1/2 4TH GEN, RFLX CONF ( test code = 3514) NON-REACTIVE Devonte Maguire, THIRD [id number] 06:45:07* Test Item Value Reference Range Interpretation Comme nts TSH, THIRD GENERATION (test code = 2821) 1.260 UIU/ML 0.400-4.100 COMPREHENSIVE METABOLIC [id number] 04:12:08* Test Item Value Reference Range Interpretation Comme nts GLUCOSE (test code = 2216) 99 MG/DL 70-99 BUN (test code = 2207) 14 MG/DL 6-20 CREATININE (test code = 221) 0.71 MG/DL 0.60-1.30 eGFR (2020 CKD-EPI) (test code = 72132) 99 ML/MIN/1.73 >60 CALC BUN/CREAT (test code = 5) 20 RATIO 6-28 SODIUM (test code = 223) 141 MEQ/L 133-146 POTASSIUM (test code = 2228) 4.8 MEQ/L 3.5-5.4 CHLORIDE (test code = 2214) 100 MEQ/L 95-107 CARBON DIOXIDE (test code = 2206) 31 MEQ/L 19-31 CALCIUM (test code = 2209) 10.8 MG/DL 8.5-10.5 H PROTEIN, TOTAL (test code = 222) 7.8 G/DL 6.1-8.3 ALBUMIN (test code = 2201) 4.8 G/DL 3.5-5.2 CALC GLOBULIN (test code = 2240) 3.0 G/DL 1.9-3.7 CALC A/G RATIO (test code = 2233) 1.6 RATIO 1.0-2.6 BILIRUBIN, TOTAL (test code = 2206) 0.4 MG/DL See_Comment [Automated me ssage] The system which generated this result transmitted reference range: <=1.2. The reference range was not used to interpret this result as normal/abnormal. ALKALINE PHOSPHATASE (test code = 4) 95 U/L 40-136 AST (test code = 2218) 20 U/L 9-40 ALT (test code = 2219) 19 U/L 5-40 LIPID [id number] 04:12:08* Test Item Value Reference Range Interpretation Comme nts CHOLESTEROL (test code = 2210) 304 MG/DL <200 H TRIGLYCERIDES (test code = 2232) 135 MG/DL <150 HDL CHOLESTEROL (test code = 2220) 97 MG/DL >39 CALC LDL CHOL (test code = 2237) 180 MG/DL <100 H NOTE: CALCULATED LDL IS BASED ON LANCE-MEREDITH METHOD WHICHINCLUDES ADJUSTABLE TRIGLYCERIDE:VLDL CHOLESTEROL RATIO.THIS FACTOR VARIES BY MEASURED TRIGLYCERIDE AND NON-HDLCHOLESTEROL CONCENTRATIONS WITH INCREASED CALCULATED LDL SEENIN HIGHER TRIGLYCERIDE OR LOWER NON-HDL SPECIMENS. FOR MOREINFORMATION, SEE CLIENT ANNOUNCEMENT AT [email or web address] RISK RATIO LDL/HDL (test code = 2238) 1.86 RATIO <3.22 CBC W/AUTO DIFF WITH [id number] 02:27:21* Test Item Value Reference Range Interpretation Comme nts WBC (test code = 1001) 6.6 K/UL 3.5-11.0 RBC (test code = 1002) 4.73 M/UL 3.80-5.40 HEMOGLOBIN (test code = 1003) 14.7 G/DL 11.5-15.5 HEMATOCRIT (test code = 1004) 43.8 % 34.0-45.0 MCV (test code = 1005) 92.6 fL 80.0-99.0 MCH (test code = 1006) 31.1 PG 25.0-33.0 MCHC (test code = 1007) 33.6 G/DL 31.0-36.0 RDW (test code = 1038) 12.3 % 11.5-15.0 NEUTROPHILS (test code = 1008) 60.5 % LYMPHOCYTES (test code = 1010) 28.0 % MONOCYTES (test code = 1011) 7.1 % EOSINOPHILS (test code = 1012) 3.5 % BASOPHILS (test code = 1013) 0.6 % IMMATURE GRANULOCYTES (test code = 1036) 0.3 % NUCLEATED RBCS (test code = 1065) 0.0 /100 WBC'S See_Comment [Automated message] The system which generated this result transmitted reference range: 0.0. The reference range was not used to interpret this result as normal/abnormal. PLATELET COUNT (test code = 1015) 331 K/UL 130-400 ABSOLUTE NEUTROPHILS (test code = 1066) 3.99 K/UL 1.50-7.50 ABSOLUTE LYMPHOCYTES (test code = 1067) 1.85 K/UL 1.00-4.00 ABSOLUTE MONOCYTES (test code = 1068) 0.47 K/UL 0.20-1.00 ABSOLUTE EOSINOPHILS (test code = 1040) 0.23 K/UL 0.00-0.50 ABSOLUTE BASOPHILS (test code = 1069) 0.04 K/UL 0.00-0.20 ABS IMMATURE GRANULOCYTES (test code = 1020) 0.02 K/UL 0.00-0.10 ABS NUCLEATED RBCS (test code = 79822) 0.00 K/UL 0.00-0.11 [facility] has important pathology staff changes effective 12/08/2022. New pathology staff will provide uninterrupted, excellent patient care and clinical consultation. See URL: [email or web address] [employer]/[email or web address] [email or web address]. UNLESS OTHERWISE INDICATED, ALL TESTING PERFORMED AT [facility] [address] [place] [address] FIRER LOCOMOTIVE: ERENDIRA CANO M.D. [place] NUMBER [id number] [facility] [place]. [id number] LIPID [id number] 00:00:00* Test Item Value Reference Range Interpretation Comme nts CHOLESTEROL (test code = 2210) 304 MG/DL TRIGLYCERIDES (test code = 2232) 135 MG/DL HDL CHOLESTEROL (test code = 2220) 97 MG/DL CALC LDL CHOL (test code = 2237) 180 MG/DL RISK RATIO LDL/HDL (test cod e = 2238) 1.86 RATIO Devonte Eyl [facility] W/AUTO [id number] 00:00:00* Test Item Value Reference Range Interpretation Comme nts WBC (test code = 1001) 6.6 K/UL RBC (test code = 1002) 4.73 M/UL HEMOGLOBIN (test code = 1003) 14.7 G/DL HEMATOCRIT (test code = 1004) 43.8 % MCV (test code = 1005) 92.6 fL MCH (test code = 1006) 31.1 PG MCHC (test code = 1007) 33.6 G/DL RDW (test code = 1038) 12.3 % NEUTROPHILS (test code = 1008) 60.5 % LYMPHOCYTES (test code = 1010) 28.0 % MONOCYTES (test code = 1011) 7.1 % EOSINOPHILS (test code = 1012) 3.5 % BASOPHILS (test code = 1013) 0.6 % IMMATURE GRANULOCYTES (test code = 1036) 0.3 % NUCLEATED RBCS (test code = 1065) 0.0 /100WBC'S PLATELET COUNT (test code = 1015) 331 K/UL ABSOLUTE NEUTROPHILS (test c ode = 1066) 3.99 K/UL ABSOLUTE LYMPHOCYTES (test c ode = 1067) 1.85 K/UL ABSOLUTE MONOCYTES (test cod e = 1068) 0.47 K/UL ABSOLUTE EOSINOPHILS (test c ode = 1040) 0.23 K/UL ABSOLUTE BASOPHILS (test cod e = 1069) 0.04 K/UL ABS IMMATURE GRANULOCYTES (t est code = 1020) 0.02 K/UL ABS NUCLEATED RBCS (test cod e = 53938) 0.00 K/UL Devonte VillarCOMPREHENSIVE METABOLIC [id number] 00:00:00* Test Item Value Reference Range Interpretation Comme nts GLUCOSE (test code = 2217) 99 MG/DL BUN (test code = 2208) 14 MG/DL CREATININE (test code = 2214) 0.71 MG/DL eGFR (2020 CKD-EPI) (test co de = 74329) 99 ML/MIN/1.73 CALC BUN/CREAT (test code = 2235) 20 RATIO SODIUM (test code = 2231) 141 MEQ/L POTASSIUM (test code = 2228) 4.8 MEQ/L CHLORIDE (test code = 2215) 100 MEQ/L CARBON DIOXIDE (test code = 2206) 31 MEQ/L CALCIUM (test code = 2209) 10.8 MG/DL PROTEIN, TOTAL (test code = 2229) 7.8 G/DL ALBUMIN (test code = 2201) 4.8 G/DL CALC GLOBULIN (test code = 2240) 3.0 G/DL CALC A/G RATIO (test code = 2234) 1.6 RATIO BILIRUBIN, TOTAL (test code = 2207) 0.4 MG/DL ALKALINE PHOSPHATASE (test code = 2204) 95 U/L AST (test code = 2218) 20 U/L ALT (test code = 2219) 19 U/L Devonte Maguire, THIRD [id number] 00:00:00* Test Item Value Reference Range Interpretation Comme nts TSH, THIRD GENERATION (test code = 2821) 1.260 UIU/ML Devonte VillarLIPID [id number] 00:00:00* Test Item Value Reference Range Interpretation Comme nts CHOLESTEROL (test code = 2210) 304 MG/DL TRIGLYCERIDES (test code = 2232) 135 MG/DL HDL CHOLESTEROL (test code = 2220) 97 MG/DL CALC LDL CHOL (test code = 2237) 180 MG/DL RISK RATIO LDL/HDL (test cod e = 2238) 1.86 RATIO Devonte VillarCBC W/AUTO [id number] 00:00:00* Test Item Value Reference Range Interpretation Comme nts WBC (test code = 1001) 6.6 K/UL RBC (test code = 1002) 4.73 M/UL HEMOGLOBIN (test code = 1003) 14.7 G/DL HEMATOCRIT (test code = 1004) 43.8 % MCV (test code = 1005) 92.6 fL MCH (test code = 1006) 31.1 PG MCHC (test code = 1007) 33.6 G/DL RDW (test code = 1038) 12.3 % NEUTROPHILS (test code = 1008) 60.5 % LYMPHOCYTES (test code = 1010) 28.0 % MONOCYTES (test code = 1011) 7.1 % EOSINOPHILS (test code = 1012) 3.5 % BASOPHILS (test code = 1013) 0.6 % IMMATURE GRANULOCYTES (test code = 1036) 0.3 % NUCLEATED RBCS (test code = 1065) 0.0 /100WBC'S PLATELET COUNT (test code = 1015) 331 K/UL ABSOLUTE NEUTROPHILS (test c ode = 1066) 3.99 K/UL ABSOLUTE LYMPHOCYTES (test c ode = 1067) 1.85 K/UL ABSOLUTE MONOCYTES (test cod e = 1068) 0.47 K/UL ABSOLUTE EOSINOPHILS (test c ode = 1040) 0.23 K/UL ABSOLUTE BASOPHILS (test cod e = 1069) 0.04 K/UL ABS IMMATURE GRANULOCYTES (t est code = 1020) 0.02 K/UL ABS NUCLEATED RBCS (test cod e = 35414) 0.00 K/UL Devonte VillarCOMPREHENSIVE METABOLIC [id number] 00:00:00* Test Item Value Reference Range Interpretation Comme nts GLUCOSE (test code = 2217) 99 MG/DL BUN (test code = 2208) 14 MG/DL CREATININE (test code = 2214) 0.71 MG/DL eGFR (2020 CKD-EPI) (test co de = 00170) 99 ML/MIN/1.73 CALC BUN/CREAT (test code = 2235) 20 RATIO SODIUM (test code = 2231) 141 MEQ/L POTASSIUM (test code = 2228) 4.8 MEQ/L CHLORIDE (test code = 2215) 100 MEQ/L CARBON DIOXIDE (test code = 2206) 31 MEQ/L CALCIUM (test code = 2209) 10.8 MG/DL PROTEIN, TOTAL (test code = 2229) 7.8 G/DL ALBUMIN (test code = 2201) 4.8 G/DL CALC GLOBULIN (test code = 2240) 3.0 G/DL CALC A/G RATIO (test code = 2234) 1.6 RATIO BILIRUBIN, TOTAL (test code = 2207) 0.4 MG/DL ALKALINE PHOSPHATASE (test code = 2204) 95 U/L AST (test code = 2218) 20 U/L ALT (test code = 2219) 19 U/L Devonte VillarTSH, THIRD [id number] 00:00:00* Test Item Value Reference Range Interpretation Comme nts TSH, THIRD GENERATION (test code = 2821) 1.260 UIU/ML Devonte VillarLIPID [id number] 00:00:00* Test Item Value Reference Range Interpretation Comme nts CHOLESTEROL (test code = 2210) 304 MG/DL TRIGLYCERIDES (test code = 2232) 135 MG/DL HDL CHOLESTEROL (test code = 2220) 97 MG/DL CALC LDL CHOL (test code = 2237) 180 MG/DL RISK RATIO LDL/HDL (test cod e = 2238) 1.86 RATIO Devonte VillarCBC W/AUTO [id number] 00:00:00* Test Item Value Reference Range Interpretation Comme nts WBC (test code = 1001) 6.6 K/UL RBC (test code = 1002) 4.73 M/UL HEMOGLOBIN (test code = 1003) 14.7 G/DL HEMATOCRIT (test code = 1004) 43.8 % MCV (test code = 1005) 92.6 fL MCH (test code = 1006) 31.1 PG MCHC (test code = 1007) 33.6 G/DL RDW (test code = 1038) 12.3 % NEUTROPHILS (test code = 1008) 60.5 % LYMPHOCYTES (test code = 1010) 28.0 % MONOCYTES (test code = 1011) 7.1 % EOSINOPHILS (test code = 1012) 3.5 % BASOPHILS (test code = 1013) 0.6 % IMMATURE GRANULOCYTES (test code = 1036) 0.3 % NUCLEATED RBCS (test code = 1065) 0.0 /100WBC'S PLATELET COUNT (test code = 1015) 331 K/UL ABSOLUTE NEUTROPHILS (test c ode = 1066) 3.99 K/UL ABSOLUTE LYMPHOCYTES (test c ode = 1067) 1.85 K/UL ABSOLUTE MONOCYTES (test cod e = 1068) 0.47 K/UL ABSOLUTE EOSINOPHILS (test c ode = 1040) 0.23 K/UL ABSOLUTE BASOPHILS (test cod e = 1069) 0.04 K/UL ABS IMMATURE GRANULOCYTES (t est code = 1020) 0.02 K/UL ABS NUCLEATED RBCS (test cod e = 80062) 0.00 K/UL Devonte VillarCOMPREHENSIVE METABOLIC [id number] 00:00:00* Test Item Value Reference Range Interpretation Comme nts GLUCOSE (test code = 2217) 99 MG/DL BUN (test code = 2208) 14 MG/DL CREATININE (test code = 2214) 0.71 MG/DL eGFR (2020 CKD-EPI) (test co de = 23275) 99 ML/MIN/1.73 CALC BUN/CREAT (test code = 2235) 20 RATIO SODIUM (test code = 2231) 141 MEQ/L POTASSIUM (test code = 2228) 4.8 MEQ/L CHLORIDE (test code = 2215) 100 MEQ/L CARBON DIOXIDE (test code = 2206) 31 MEQ/L CALCIUM (test code = 2209) 10.8 MG/DL PROTEIN, TOTAL (test code = 2229) 7.8 G/DL ALBUMIN (test code = 2201) 4.8 G/DL CALC GLOBULIN (test code = 2240) 3.0 G/DL CALC A/G RATIO (test code = 2234) 1.6 RATIO BILIRUBIN, TOTAL (test code = 2207) 0.4 MG/DL ALKALINE PHOSPHATASE (test code = 2204) 95 U/L AST (test code = 2218) 20 U/L ALT (test code = 2219) 19 U/L Devonte Maguire, THIRD [id number] 00:00:00* Test Item Value Reference Range Interpretation Comme nts TSH, THIRD GENERATION (test code = 2821) 1.260 UIU/ML Devonte Graves AustinSURGICAL PATHOLOGY [id number] 00:00:00* Test Item Value Reference Range Interpretation Comme nts DIAGNOSIS: (test code = 8200) (NOTE) MICROSCOPIC DESCRIPTION: (te st code = 8210) (NOTE) CLINICAL DATA: (test code = 8401) (NOTE) GROSS DESCRIPTION: (test code = 8220) (NOTE) PATHOLOGIST: (test code = 8250) (NOTE) CPT: (test code = 8400) (NOTE) Devonte VillarSURGICAL PATHOLOGY [id number] 00:00:00* Test Item Value Reference Range Interpretation Comme nts DIAGNOSIS: (test code = 8200) (NOTE) MICROSCOPIC DESCRIPTION: (te st code = 8210) (NOTE) CLINICAL DATA: (test code = 8401) (NOTE) GROSS DESCRIPTION: (test code = 8220) (NOTE) PATHOLOGIST: (test code = 8250) (NOTE) CPT: (test code = 8400) (NOTE) Devonte VillarSURGICAL PATHOLOGY [id number] 00:00:00* Test Item Value Reference Range Interpretation Comme nts DIAGNOSIS: (test code = 8200) (NOTE) MICROSCOPIC DESCRIPTION: (te st code = 8210) (NOTE) CLINICAL DATA: (test code = 8401) (NOTE) GROSS DESCRIPTION: (test code = 8220) (NOTE) PATHOLOGIST: (test code = 8250) (NOTE) CPT: (test code = 8400) (NOTE) Devonte VillarHPV HIGH RISK WITH GENOTYPE, [id number] 00:00:00* Test Item Value Reference Range Interpretation Comme nts HPV HIGH RISK INTERP (test code = 98264) NEGATIVE HPV 16 (test code = 41155) TEST NOT PERFORMED HPV 18 (test code = 19349) TEST NOT PERFORMED HPV, HR, OTHER GENOTYPES (test code = 81836) TEST NOT PERFORMED Devonte F AustinPAP TEST, THINPREP, [id number] 00:00:00* Test Item Value Reference Range Interpretation Comme nts SOURCE: (test code = 8001) Endocervical SLIDES: (test code = 8011) 1 LMP: (test code = 8021) SPECIMEN ADEQUACY: (test code = 30558) (NOTE) INTERPRETATION: (test code = 37791) ASCUS/EPITH. ABNORMALITY; SEE BELOW SCARFER OPERATOR: (test code = 8101) Loretta IzaguirreMA(ASCP)IAC PATHOLOGIST INTERPRETATION BY: (test code = 8122) Neto Koenig M.D. LOCATION: (test code = 49093) (NOTE) CPT: (test code = 8140) (NOTE) Devonte Ely AustinHPV HIGH RISK WITH GENOTYPE, [id number] 00:00:00* Test Item Value Reference Range Interpretation Comme nts HPV HIGH RISK INTERP (test code = 18972) NEGATIVE HPV 16 (test code = 27075) TEST NOT PERFORMED HPV 18 (test code = 90352) TEST NOT PERFORMED HPV, HR, OTHER GENOTYPES (test code = 66099) TEST NOT PERFORMED Devonte Ely VillarPAP TEST, THINPREP, [id number] 00:00:00* Test Item Value Reference Range Interpretation Comme nts SOURCE: (test code = 8001) Endocervical SLIDES: (test code = 8011) 1 LMP: (test code = 8021) SPECIMEN ADEQUACY: (test code = 81336) (NOTE) INTERPRETATION: (test code = 46789) ASCUS/EPITH. ABNORMALITY; SEE BELOW SCARFER OPERATOR: (test code = 8101) MICHEL Carmichael(ASCP)IAC PATHOLOGIST INTERPRETATION BY: (test code = 8122) Neto Koenig M.D. LOCATION: (test code = 93828) (NOTE) CPT: (test code = 8140) (NOTE) Devonte F AustinHPV HIGH RISK WITH GENOTYPE, [id number] 00:00:00* Test Item Value Reference Range Interpretation Comme nts HPV HIGH RISK INTERP (test code = 29186) NEGATIVE HPV 16 (test code = 23326) TEST NOT PERFORMED HPV 18 (test code = 79924) TEST NOT PERFORMED HPV, HR, OTHER GENOTYPES (test code = 46094) TEST NOT PERFORMED Devonte JohnsonP TEST, THINPREP, [id number] 00:00:00* Test Item Value Reference Range Interpretation Comme nts SOURCE: (test code = 8001) Endocervical SLIDES: (test code = 8011) 1 LMP: (test code = 8021) SPECIMEN ADEQUACY: (test code = 84106) (NOTE) INTERPRETATION: (test code = 64973) ASCUS/EPITH. ABNORMALITY; SEE BELOW SCARFER OPERATOR: (test code = 8101) MICHEL Carmichael(ASCP)IAC PATHOLOGIST INTERPRETATION BY: (test code = 8122) Neto Koenig M.D. LOCATION: (test code = 17555) (NOTE) CPT: (test code = 8140) (NOTE) Devonte VillarGC AND CHLAMYDIA AMPLIFIED, [id number] 00:00:00* Test Item Value Reference Range Interpretation Comme nts GONORRHEA, TMA (test code = 63978) NEGATIVE CHLAMYDIA, TMA (test code = 28803) NEGATIVE Devonte VillarGC AND CHLAMYDIA AMPLIFIED, [id number] 00:00:00* Test Item Value Reference Range Interpretation Comme nts GONORRHEA, TMA (test code = 34266) NEGATIVE CHLAMYDIA, TMA (test code = 31552) NEGATIVE Devonte VillarGC AND CHLAMYDIA AMPLIFIED, [id number] 00:00:00* Test Item Value Reference Range Interpretation Comme nts GONORRHEA, TMA (test code = 07732) NEGATIVE CHLAMYDIA, TMA (test code = 21527) NEGATIVE Devonte VillarDIAG MAMM BILATERAL CAD [id number] 14:35:53- DIAG MAMM BILATERAL CAD DIGITALBILATERAL DIGITAL DIAGNOSTIC MAMMOGRAM WITH CAD: 02/26/2019CLINICAL: Right breast thickening. Current mammographic images were evaluated by either a [employer] M-Vu or a [employer] ImageChecker CAD (computer aided detection system). Comparison is made to exams dated 09/15/2018 mammogram, 12/24/2016 mammogram, and 11/02/2014 mammogram - [facility]. There arescattered fibroglandular tissues in both breasts. There are nodular densities in the right breast that most likely represent benign fibroadenomas, cysts, or nodular breast tissue, however this must be confirmed with ultrasound. No suspicious mass, architectural distortion, malignant type calcification, or lymph node abnormality detected. INCOMPLETE ASSESSMENT: ADDITIONAL IMAGING EVALUATION RECOMMENDED Ultrasound pending for additional evaluation. Resume annual screening mammography in one year.- BREAST ULTRASOUND BILATERALULTRASOUND OF BOTH BREASTS AND BOTH AXILLA: 02/26/2019Comparison is made to exams dated 09/15/2018 mammogram, 12/24/2016 mammogram, and 11/02/2014 [facility]ogram - [facility]. Real-time ultrasound of both breasts and both [...] in 1 year.Cristina Land M.D. dm/:02/26/2019 14:35:53 Dimension Specification Inspector: Vicki MCBRIDE(Janis), [facility]-FWletter sent: BIRADS 1-2 Combo FU Letter Mammogram BI-RADS: 0 Indeterminate Ultrasound BI-RADS: 2 BenignBREAST ULTRASOUND [id number] 14:35:53- DIAG MAMM BILATERAL CAD DIGITALBILATERAL DIGITAL DIAGNOSTIC MAMMOGRAM WITH CAD: 02/26/2019CLINICAL: Right breast thickening. Current mammographic images were evaluated by either a [employer] M-Vu or a [employer] Image[employer]er CAD (computer aided detection system). Comparison is made to exams dated 09/15/2018 mammogram, 12/24/2016 mammogram, and 11/02/2014 mammogram - [facility]. There are scattered fibroglandular tissues in both breasts. There are nodular densities in the right breast that most likely represent benign fibroadenomas, cysts, or nodular breast tissue, however this must beconfirmed with ultrasound. No suspicious mass, architectural distortion, malignant type calcification, or lymph node abnormality detected. INCOMPLETE ASSESSMENT: ADDITIONAL IMAGING EVALUATION RECOMMENDED Ultrasound pending for additional evaluation. Resume annual screening mammography in one year. - BREAST ULTRASOUND BILATERALULTRASOUND OF BOTH BREASTS AND BOTH AXILLA: 02/26/2019Comparison is madeto exams dated 09/15/2018 mammogram, 12/24/2016 mammogram, and 11/02/2014 mammogram - [facility]. Real-time ultrasound of both breasts [...] 6 cm from the nipple. Color flow imagingdemonstrates that there is no increase in vascularity. No abnormalities were seen sonographically in the left breast or either axilla. IMPRESSION: BENIGN There is no sonographic evidence of malignancy. The masses in the right breast are most likely due to fat necrosis. Patient has been informed that she should have screening mammogram and supplemental ultrasound in 1 year.Cristina Land M.D. dm/:02/26/2019 14:35:53 Dimension Specification Inspector: Vicki Graf FW RT(Janis), [facility]-FWletter sent: BIRADS 1-2 Combo FU Letter Mammogram BI-RADS: 0 Indeterminate Ultrasound BI-RADS: 2 BenignSCR MAMM BILATERAL CAD DIGITAL 2018-09-19 14:23:03- SCR MAMM BILATERAL CAD DIGITALBILATERAL DIGITAL SCREENING MAMMOGRAM WITH CAD: 09/15/2018CLINICAL: Asymptomatic. Current mammographic images were evaluated by either a [employer]-Vu or a [employer] Image[employer] CAD (computer aided detection system). Comparison is made to exams dated 12/24/2016 mammogram a nd 11/02/2014 mammogram - [facility]. There are scattered fibroglandular tissues inboth breasts. No suspicious mass, architectural distortion, malignant type calcification, or lymph node abnormality detected. Breast architecture is stable compared to prior exams.IMPRESSION: NEGATIVEThere is no mammographic evidence of malignancy. Resume annual screening mammography in one year. Anatoly rodriguez/mia:09/19/2018 14:23:03 Attending Technologist: Jennifer Boss MM, [facility] MammographyImaging Technologist: Jackelyn Burt MM, [facility] Mammographyletter sent: BIRADS 1-2 Normal Mammogram BI-RADS: 1 NegativeCBC W/AUTO [id number] 00:00:00* Test Item Value Reference Range Interpretation Comme nts WBC (test code = 1001) 7.4 K/UL RBC (test code = 1002) 4.56 M/UL HEMOGLOBIN (test code = 1003) 13.9 G/DL HEMATOCRIT (test code = 1004) 40.2 % MCV (test code = 1005) 88.2 fL MCH (test code = 1006) 30.5 PG MCHC (test code = 1007) 34.6 G/DL RDW (test code = 1038) 12.0 % NEUTROPHILS (test code = 1008) 57.0 % LYMPHOCYTES (test code = 1010) 31.8 % MONOCYTES (test code = 1011) 7.2 % EOSINOPHILS (test code = 1012) 3.0 % BASOPHILS (test code = 1013) 1.0 % PLATELET COUNT (test code = 1015) 349 K/UL Devonte VillarCOMPREHENSIVE METABOLIC [id number] 00:00:00* Test Item Value Reference Range Interpretation Comme nts GLUCOSE (test code = 2217) 99 MG/DL BUN (test code = 2208) 15 MG/DL CREATININE (test code = 2214) 0.65 MG/DL eGFR AMER. (test cod e = 47352) 118 ML/MIN/1.73 eGFR NON- AMER. (test code = 84557) 102 ML/MIN/1.73 CALC BUN/CREAT (test code = 2235) 23 RATIO SODIUM (test code = 2231) 142 MEQ/L POTASSIUM (test code = 2228) 5.1 MEQ/L CHLORIDE (test code = 2215) 100 MEQ/L CARBON DIOXIDE (test code = 2206) 30 MEQ/L CALCIUM (test code = 2209) 9.9 MG/DL PROTEIN, TOTAL (test code = 2229) 7.7 G/DL ALBUMIN (test code = 2201) 4.9 G/DL CALC GLOBULIN (test code = 2240) 2.8 G/DL CALC A/G RATIO (test code = 2234) 1.8 RATIO BILIRUBIN, TOTAL (test code = 2207) 0.4 MG/DL ALKALINE PHOSPHATASE (test code = 2204) 83 U/L AST (test code = 2218) 16 U/L ALT (test code = 2219) 14 U/L Devonte VillarCBC W/AUTO [id number] 00:00:00* Test Item Value Reference Range Interpretation Comme nts WBC (test code = 1001) 7.4 K/UL RBC (test code = 1002) 4.56 M/UL HEMOGLOBIN (test code = 1003) 13.9 G/DL HEMATOCRIT (test code = 1004) 40.2 % MCV (test code = 1005) 88.2 fL MCH (test code = 1006) 30.5 PG MCHC (test code = 1007) 34.6 G/DL RDW (test code = 1038) 12.0 % NEUTROPHILS (test code = 1008) 57.0 % LYMPHOCYTES (test code = 1010) 31.8 % MONOCYTES (test code = 1011) 7.2 % EOSINOPHILS (test code = 1012) 3.0 % BASOPHILS (test code = 1013) 1.0 % PLATELET COUNT (test code = 1015) 349 K/UL Devonte Graves JianCOMPREHENSIVE METABOLIC [id number] 00:00:00* Test Item Value Reference Range Interpretation Comme nts GLUCOSE (test code = 2217) 99 MG/DL BUN (test code = 2208) 15 MG/DL CREATININE (test code = 2214) 0.65 MG/DL eGFR AMER. (test cod e = 15543) 118 ML/MIN/1.73 eGFR NON- AMER. (test code = 90365) 102 ML/MIN/1.73 CALC BUN/CREAT (test code = 2235) 23 RATIO SODIUM (test code = 2231) 142 MEQ/L POTASSIUM (test code = 2228) 5.1 MEQ/L CHLORIDE (test code = 2215) 100 MEQ/L CARBON DIOXIDE (test code = 2206) 30 MEQ/L CALCIUM (test code = 2209) 9.9 MG/DL PROTEIN, TOTAL (test code = 2229) 7.7 G/DL ALBUMIN (test code = 2201) 4.9 G/DL CALC GLOBULIN (test code = 2240) 2.8 G/DL CALC A/G RATIO (test code = 2234) 1.8 RATIO BILIRUBIN, TOTAL (test code = 2207) 0.4 MG/DL ALKALINE PHOSPHATASE (test code = 2204) 83 U/L AST (test code = 2218) 16 U/L ALT (test code = 2219) 14 U/L Devonte Graves JianCBC W/AUTO [id number] 00:00:00* Test Item Value Reference Range Interpretation Comme nts WBC (test code = 1001) 7.4 K/UL RBC (test code = 1002) 4.56 M/UL HEMOGLOBIN (test code = 1003) 13.9 G/DL HEMATOCRIT (test code = 1004) 40.2 % MCV (test code = 1005) 88.2 fL MCH (test code = 1006) 30.5 PG MCHC (test code = 1007) 34.6 G/DL RDW (test code = 1038) 12.0 % NEUTROPHILS (test code = 1008) 57.0 % LYMPHOCYTES (test code = 1010) 31.8 % MONOCYTES (test code = 1011) 7.2 % EOSINOPHILS (test code = 1012) 3.0 % BASOPHILS (test code = 1013) 1.0 % PLATELET COUNT (test code = 1015) 349 K/UL Devonte Graves JianCOMPREHENSIVE METABOLIC [id number] 00:00:00* Test Item Value Reference Range Interpretation Comme nts GLUCOSE (test code = 2217) 99 MG/DL BUN (test code = 2208) 15 MG/DL CREATININE (test code = 2214) 0.65 MG/DL eGFR AMER. (test cod e = 19449) 118 ML/MIN/1.73 eGFR NON- AMER. (test code = 14028) 102 ML/MIN/1.73 CALC BUN/CREAT (test code = 2235) 23 RATIO SODIUM (test code = 2231) 142 MEQ/L POTASSIUM (test code = 2228) 5.1 MEQ/L CHLORIDE (test code = 2215) 100 MEQ/L CARBON DIOXIDE (test code = 2206) 30 MEQ/L CALCIUM (test code = 2209) 9.9 MG/DL PROTEIN, TOTAL (test code = 2229) 7.7 G/DL ALBUMIN (test code = 2201) 4.9 G/DL CALC GLOBULIN (test code = 2240) 2.8 G/DL CALC A/G RATIO (test code = 2234) 1.8 RATIO BILIRUBIN, TOTAL (test code = 2207) 0.4 MG/DL ALKALINE PHOSPHATASE (test code = 2204) 83 U/L AST (test code = 2218) 16 U/L ALT (test code = 2219) 14 U/L Devonte VillarHEPATITIS C REFLEX [id number] 00:00:00* Test Item Value Reference Range Interpretation Comme nts HEPATITIS C ANTIBODY (test c ode = 4675) NON-REACTIVE Devonte VillarPAP TEST, THINPREP, [id number] 00:00:00* Test Item Value Reference Range Interpretation Comme nts SOURCE: (test code = 8001) Cervical/Endocervical SLIDES: (test code = 8011) 1 LMP: (test code = 8021) 2015 SPECIMEN ADEQUACY: (test code = 68526) (NOTE) INTERPRETATION: (test code = 32487) NO EPITHELIAL ABNORMALITY SEE BELOW SCARFER OPERATOR: (test code = 8101) MICHEL Kim(ASCP) LOCATION: (test code = 26411) (NOTE) CPT: (test code = 8140) (NOTE) Devonte Graves AustinHPV HIGH RISK WITH GENOTYPE, [id number] 00:00:00* Test Item Value Reference Range Interpretation Comme nts HPV HIGH RISK INTERP (test c ode = 96607) NEGATIVE HPV 16 (test code = 31903) NEGATIVE HPV 18 (test code = 77064) NEGATIVE HPV, HR, OTHER GENOTYPES (te st code = 28161) NEGATIVE Devonte Graves JianHEPATITIS C REFLEX [id number] 00:00:00* Test Item Value Reference Range Interpretation Comme nts HEPATITIS C ANTIBODY (test c ode = 4675) NON-REACTIVE Devonte VillarPAP TEST, THINPREP, [id number] 00:00:00* Test Item Value Reference Range Interpretation Comme nts SOURCE: (test code = 8001) Cervical/Endocervical SLIDES: (test code = 8011) 1 LMP: (test code = 8021) 2015 SPECIMEN ADEQUACY: (test code = 60011) (NOTE) INTERPRETATION: (test code = 58662) NO EPITHELIAL ABNORMALITY SEE BELOW SCARFER OPERATOR: (test code = 8101) MICHEL Kim(ASCP) LOCATION: (test code = 08571) (NOTE) CPT: (test code = 8140) (NOTE) Devonte Graves AustinHPV HIGH RISK WITH GENOTYPE, [id number] 00:00:00* Test Item Value Reference Range Interpretation Comme nts HPV HIGH RISK INTERP (test c ode = 34799) NEGATIVE HPV 16 (test code = 48061) NEGATIVE HPV 18 (test code = 92307) NEGATIVE HPV, HR, OTHER GENOTYPES (te st code = 69986) NEGATIVE Devonte VillarPAP TEST, THINPREP, [id number] 00:00:00* Test Item Value Reference Range Interpretation Comme nts SOURCE: (test code = 8001) Cervical/Endocervical SLIDES: (test code = 8011) 1 LMP: (test code = 8021) 2015 SPECIMEN ADEQUACY: (test code = 53900) (NOTE) INTERPRETATION: (test code = 46775) NO EPITHELIAL ABNORMALITY SEE BELOW SCARFER OPERATOR: (test code = 8101) MICHEL Kim(ASCP) LOCATION: (test code = 93722) (NOTE) CPT: (test code = 8140) (NOTE) Devonte Graves AustinHEPATITIS C REFLEX [id number] 00:00:00* Test Item Value Reference Range Interpretation Comme nts HEPATITIS C ANTIBODY (test c ode = 4675) NON-REACTIVE Devonte VillarHPV HIGH RISK WITH GENOTYPE, [id number] 00:00:00* Test Item Value Reference Range Interpretation Comme nts HPV HIGH RISK INTERP (test c ode = 96888) NEGATIVE HPV 16 (test code = 20448) NEGATIVE HPV 18 (test code = 89498) NEGATIVE HPV, HR, OTHER GENOTYPES (te st code = 18506) NEGATIVE Devonte VillarCOMPREHENSIVE METABOLIC [id number] 00:00:00* Test Item Value Reference Range Interpretation Comme nts GLUCOSE (test code = 2217) 95 MG/DL BUN (test code = 2208) 10 MG/DL CREATININE (test code = 2214) 0.76 MG/DL eGFR AMER. (test cod e = 82052) 105 ML/MIN/1.73 eGFR NON- AMER. (test code = 65476) 91 ML/MIN/1.73 CALC BUN/CREAT (test code = 2235) 13 RATIO SODIUM (test code = 2231) 146 MEQ/L POTASSIUM (test code = 2228) 5.0 MEQ/L CHLORIDE (test code = 2215) 102 MEQ/L CARBON DIOXIDE (test code = 2206) 22 MEQ/L CALCIUM (test code = 2209) 10.6 MG/DL PROTEIN, TOTAL (test code = 2229) 7.0 G/DL ALBUMIN (test code = 2201) 4.4 G/DL CALC GLOBULIN (test code = 2240) 2.6 G/DL CALC A/G RATIO (test code = 2234) 1.7 RATIO BILIRUBIN, TOTAL (test code = 2207) 0.5 MG/DL ALKALINE PHOSPHATASE (test code = 2204) 85 U/L AST (test code = 2218) 17 U/L ALT (test code = 2219) 17 U/L Devonte Graves AustinLIPID [id number] 00:00:00* Test Item Value Reference Range Interpretation Comme nts CHOLESTEROL (test code = 2210) 262 MG/DL TRIGLYCERIDES (test code = 2232) 82 MG/DL HDL CHOLESTEROL (test code = 2220) 79 MG/DL CALC LDL CHOL (test code = 2237) 167 MG/DL RISK RATIO LDL/HDL (test cod e = 2238) 2.11 RATIO Devonte Graves JianTHYROID II PROFILE (T3U, T4, T7, TSH)[id number] 00:00:00* Test Item Value Reference Range Interpretation Comme nts T3 UPTAKE (test code = 2817) 30.5 % T4 (THYROXINE) (test code = 2819) 6.8 UG/DL CALCULATED T7 (FTI) (test co de = 2820) 2.07 TSH (test code = 2821) 1.6 UIU/ML Devonte F JianCOMPREHENSIVE METABOLIC [id number] 00:00:00* Test Item Value Reference Range Interpretation Comme nts GLUCOSE (test code = 2217) 95 MG/DL BUN (test code = 2208) 10 MG/DL CREATININE (test code = 2214) 0.76 MG/DL eGFR AMER. (test cod e = 56487) 105 ML/MIN/1.73 eGFR NON- AMER. (test code = 68816) 91 ML/MIN/1.73 CALC BUN/CREAT (test code = 2235) 13 RATIO SODIUM (test code = 2231) 146 MEQ/L POTASSIUM (test code = 2228) 5.0 MEQ/L CHLORIDE (test code = 2215) 102 MEQ/L CARBON DIOXIDE (test code = 2206) 22 MEQ/L CALCIUM (test code = 2209) 10.6 MG/DL PROTEIN, TOTAL (test code = 2229) 7.0 G/DL ALBUMIN (test code = 2201) 4.4 G/DL CALC GLOBULIN (test code = 2240) 2.6 G/DL CALC A/G RATIO (test code = 2234) 1.7 RATIO BILIRUBIN, TOTAL (test code = 2207) 0.5 MG/DL ALKALINE PHOSPHATASE (test code = 2204) 85 U/L AST (test code = 2218) 17 U/L ALT (test code = 2219) 17 U/L Devonte Graves AustinLIPID [id number] 00:00:00* Test Item Value Reference Range Interpretation Comme nts CHOLESTEROL (test code = 2210) 262 MG/DL TRIGLYCERIDES (test code = 2232) 82 MG/DL HDL CHOLESTEROL (test code = 2220) 79 MG/DL CALC LDL CHOL (test code = 2237) 167 MG/DL RISK RATIO LDL/HDL (test cod e = 2238) 2.11 RATIO Devonte Graves JianTHYROID II PROFILE (T3U, T4, T7, TSH)2016-11-15 00:00:00* Test Item Value Reference Range Interpretation Comme nts T3 UPTAKE (test code = 2817) 30.5 % T4 (THYROXINE) (test code = 2819) 6.8 UG/DL CALCULATED T7 (FTI) (test co de = 2820) 2.07 TSH (test code = 2821) 1.6 UIU/ML Devonte Graves JianCOMPREHENSIVE METABOLIC [id number] 00:00:00* Test Item Value Reference Range Interpretation Comme nts GLUCOSE (test code = 2217) 95 MG/DL BUN (test code = 2208) 10 MG/DL CREATININE (test code = 2214) 0.76 MG/DL eGFR AMER. (test cod e = 69366) 105 ML/MIN/1.73 eGFR NON- AMER. (test code = 84757) 91 ML/MIN/1.73 CALC BUN/CREAT (test code = 2235) 13 RATIO SODIUM (test code = 2231) 146 MEQ/L POTASSIUM (test code = 2228) 5.0 MEQ/L CHLORIDE (test code = 2215) 102 MEQ/L CARBON DIOXIDE (test code = 2206) 22 MEQ/L CALCIUM (test code = 2209) 10.6 MG/DL PROTEIN, TOTAL (test code = 2229) 7.0 G/DL ALBUMIN (test code = 2201) 4.4 G/DL CALC GLOBULIN (test code = 2240) 2.6 G/DL CALC A/G RATIO (test code = 2234) 1.7 RATIO BILIRUBIN, TOTAL (test code = 2207) 0.5 MG/DL ALKALINE PHOSPHATASE (test code = 2204) 85 U/L AST (test code = 2218) 17 U/L ALT (test code = 2219) 17 U/L Devonte VillarLIPID [id number] 00:00:00* Test Item Value Reference Range Interpretation Comme nts CHOLESTEROL (test code = 2210) 262 MG/DL TRIGLYCERIDES (test code = 2232) 82 MG/DL HDL CHOLESTEROL (test code = 2220) 79 MG/DL CALC LDL CHOL (test code = 2237) 167 MG/DL RISK RATIO LDL/HDL (test cod e = 2238) 2.11 RATIO Devonte VillarTHYROID II PROFILE (T3U, T4, T7, TSH)2016-11-15 00:00:00* Test Item Value Reference Range Interpretation Comme nts T3 UPTAKE (test code = 2817) 30.5 % T4 (THYROXINE) (test code = 2819) 6.8 UG/DL CALCULATED T7 (FTI) (test co de = 2820) 2.07 TSH (test code = 2821) 1.6 UIU/ML Devonte VillarHEMOGLOBIN [id number] 00:00:00* Test Item Value Reference Range Interpretation Comme nts HEMOGLOBIN A1c (test code = 58055) 5.4 % Devonte Graves AustinCBC W/AUTO [id number] 00:00:00* Test Item Value Reference Range Interpretation Comme nts WBC (test code = 1001) 5.1 K/UL RBC (test code = 1002) 4.60 M/UL HEMOGLOBIN (test code = 1003) 14.2 G/DL HEMATOCRIT (test code = 1004) 40.9 % MCV (test code = 1005) 88.9 fL MCH (test code = 1006) 30.9 PG MCHC (test code = 1007) 34.7 G/DL RDW (test code = 1038) 12.6 % NEUTROPHILS (test code = 1008) 51.0 % LYMPHOCYTES (test code = 1010) 34.5 % MONOCYTES (test code = 1011) 9.0 % EOSINOPHILS (test code = 1012) 4.7 % BASOPHILS (test code = 1013) 0.8 % PLATELET COUNT (test code = 1015) 332 K/UL Devonte Graves AustinHEMOGLOBIN [id number] 00:00:00* Test Item Value Reference Range Interpretation Comme nts HEMOGLOBIN A1c (test code = 40030) 5.4 % Devonte Graves AustinCBC W/AUTO [id number] 00:00:00* Test Item Value Reference Range Interpretation Comme nts WBC (test code = 1001) 5.1 K/UL RBC (test code = 1002) 4.60 M/UL HEMOGLOBIN (test code = 1003) 14.2 G/DL HEMATOCRIT (test code = 1004) 40.9 % MCV (test code = 1005) 88.9 fL MCH (test code = 1006) 30.9 PG MCHC (test code = 1007) 34.7 G/DL RDW (test code = 1038) 12.6 % NEUTROPHILS (test code = 1008) 51.0 % LYMPHOCYTES (test code = 1010) 34.5 % MONOCYTES (test code = 1011) 9.0 % EOSINOPHILS (test code = 1012) 4.7 % BASOPHILS (test code = 1013) 0.8 % PLATELET COUNT (test code = 1015) 332 K/UL Devonte Graves AustinHEMOGLOBIN [id number] 00:00:00* Test Item Value Reference Range Interpretation Comme nts HEMOGLOBIN A1c (test code = 23671) 5.4 % Devonte VillarC W/AUTO [id number] 00:00:00* Test Item Value Reference Range Interpretation Comme nts WBC (test code = 1001) 5.1 K/UL RBC (test code = 1002) 4.60 M/UL HEMOGLOBIN (test code = 1003) 14.2 G/DL HEMATOCRIT (test code = 1004) 40.9 % MCV (test code = 1005) 88.9 fL MCH (test code = 1006) 30.9 PG MCHC (test code = 1007) 34.7 G/DL RDW (test code = 1038) 12.6 % NEUTROPHILS (test code = 1008) 51.0 % LYMPHOCYTES (test code = 1010) 34.5 % MONOCYTES (test code = 1011) 9.0 % EOSINOPHILS (test code = 1012) 4.7 % BASOPHILS (test code = 1013) 0.8 % PLATELET COUNT (test code = 1015) 332 K/UL Devonte VillarPAP TEST, THINPREP, [id number] 00:00:00* Test Item Value Reference Range Interpretation Comme nts SOURCE: (test code = 8001) Cervical/Endocervical SLIDES: (test code = 8011) 1 LMP: (test code = 8021) 10/10/2015 SPECIMEN ADEQUACY: (test code = 54144) (NOTE) INTERPRETATION: (test code = 65014) NO EPITHELIAL ABNORMALITY SEE BELOW OTHER COMMENTS: (test code = 8081) (NOTE) SCARFER OPERATOR: (test code = 8101) MICHEL Kim(ASCP) LOCATION: (test code = 95444) (NOTE) CPT: (test code = 8140) (NOTE) Devonte Graves JianHPV HIGH RISK WITH GENOTYPE, [id number] 00:00:00* Test Item Value Reference Range Interpretation Comme nts HPV HIGH RISK INTERP (test c ode = 40383) NEGATIVE HPV 16 (test code = 16120) NEGATIVE HPV 18 (test code = 70414) NEGATIVE HPV, HR, OTHER GENOTYPES (te st code = 79586) NEGATIVE Devonte Graves JianPAP TEST, THINPREP, [id number] 00:00:00* Test Item Value Reference Range Interpretation Comme nts SOURCE: (test code = 8001) Cervical/Endocervical SLIDES: (test code = 8011) 1 LMP: (test code = 8021) 10/10/2015 SPECIMEN ADEQUACY: (test code = 95088) (NOTE) INTERPRETATION: (test code = 53799) NO EPITHELIAL ABNORMALITY SEE BELOW OTHER COMMENTS: (test code = 8081) (NOTE) SCARFER OPERATOR: (test code = 8101) MICHEL Kim(ASCP) LOCATION: (test code = 65661) (NOTE) CPT: (test code = 8140) (NOTE) Devonte Graves AustinHPV HIGH RISK WITH GENOTYPE, [id number] 00:00:00* Test Item Value Reference Range Interpretation Comme nts HPV HIGH RISK INTERP (test c ode = 45692) NEGATIVE HPV 16 (test code = 50927) NEGATIVE HPV 18 (test code = 96843) NEGATIVE HPV, HR, OTHER GENOTYPES (te st code = 76203) NEGATIVE Devonte Graves AustinPAP TEST, THINPREP, [id number] 00:00:00* Test Item Value Reference Range Interpretation Comme nts SOURCE: (test code = 8001) Cervical/Endocervical SLIDES: (test code = 8011) 1 LMP: (test code = 8021) 10/10/2015 SPECIMEN ADEQUACY: (test code = 10382) (NOTE) INTERPRETATION: (test code = 65173) NO EPITHELIAL ABNORMALITY SEE BELOW OTHER COMMENTS: (test code = 8081) (NOTE) SCARFER OPERATOR: (test code = 8101) MICHEL Kim(ASCP) LOCATION: (test code = 86846) (NOTE) CPT: (test code = 8140) (NOTE) Devonte Graves AustinHPV HIGH RISK WITH GENOTYPE, [id number] 00:00:00* Test Item Value Reference Range Interpretation Comme nts HPV HIGH RISK INTERP (test c ode = 00330) NEGATIVE HPV 16 (test code = 77276) NEGATIVE HPV 18 (test code = 05766) NEGATIVE HPV, HR, OTHER GENOTYPES (te st code = 24548) NEGATIVE Devonte F AustinPAP TEST, THINPREP, [id number] 00:00:00* Test Item Value Reference Range Interpretation Comme nts SOURCE: (test code = 8001) A) Cervical/Endocervical SLIDES: (test code = 8011) 1 LMP: (test code = 8021) 05/2015 SPECIMEN ADEQUACY: (test code = 05165) (NOTE) INTERPRETATION: (test code = 07686) NO EPITHELIAL ABNORMALITY SEE BELOW SCARFER OPERATOR: (test code = 8101) MICHEL Lomax(ASCP)IAC LOCATION: (test code = 24872) (NOTE) CPT: (test code = 8140) (NOTE) Devonte Graves AustinHPV HIGH RISK WITH GENOTYPE, [id number] 00:00:00* Test Item Value Reference Range Interpretation Comme nts HPV HIGH RISK INTERP (test c ode = 30377) NEGATIVE HPV 16 (test code = 78422) NEGATIVE HPV 18 (test code = 92723) NEGATIVE HPV, HR, OTHER GENOTYPES (te st code = 60608) NEGATIVE Devonte VillarPAP TEST, THINPREP, [id number] 00:00:00* Test Item Value Reference Range Interpretation Comme nts SOURCE: (test code = 8001) A) Cervical/Endocervical SLIDES: (test code = 8011) 1 LMP: (test code = 8021) 05/2015 SPECIMEN ADEQUACY: (test code = 45532) (NOTE) INTERPRETATION: (test code = 76654) NO EPITHELIAL ABNORMALITY SEE BELOW SCARFER OPERATOR: (test code = 8101) MICHEL Lomax(ASCP)IAC LOCATION: (test code = 91949) (NOTE) CPT: (test code = 8140) (NOTE) Devonte Graves AustinHPV HIGH RISK WITH GENOTYPE, [id number] 00:00:00* Test Item Value Reference Range Interpretation Comme nts HPV HIGH RISK INTERP (test c ode = 48522) NEGATIVE HPV 16 (test code = 61705) NEGATIVE HPV 18 (test code = 08022) NEGATIVE HPV, HR, OTHER GENOTYPES (te st code = 98464) NEGATIVE Devonte Graves AustinPAP TEST, THINPREP, [id number] 00:00:00* Test Item Value Reference Range Interpretation Comme nts SOURCE: (test code = 8001) A) Cervical/Endocervical SLIDES: (test code = 8011) 1 LMP: (test code = 8021) 05/2015 SPECIMEN ADEQUACY: (test code = 03722) (NOTE) INTERPRETATION: (test code = 45177) NO EPITHELIAL ABNORMALITY SEE BELOW SCARFER OPERATOR: (test code = 8101) MICHEL Lomax(ASCP)IAC LOCATION: (test code = 39777) (NOTE) CPT: (test code = 8140) (NOTE) Devonte VillarHPV HIGH RISK WITH GENOTYPE, [id number] 00:00:00* Test Item Value Reference Range Interpretation Comme nts HPV HIGH RISK INTERP (test c ode = 56316) NEGATIVE HPV 16 (test code = 51714) NEGATIVE HPV 18 (test code = 29021) NEGATIVE HPV, HR, OTHER GENOTYPES (te st code = 19328) NEGATIVE Devonte Villar Notes Date/Time Note Provider Source Devonte Villar [facility]2024-11-20 00:00:00 Devonte Villar [facility]2024-05-22 00:00:00 Devonte Villar [facility]
[2025-07-02 01:34] LABS: Absolute Lymphocytes (CBC) 2.2 K/uL (0.7-4.9); Hematocrit 40.2 % (36.0-45.0); Hemoglobin 13.4 g/dL (12.0-15.0); MCH 30.6 pg (27.0-35.0); MCHC 33.4 g/dL (32.0-36.0); MCV 91.5 fL (80-100); MPV 8.3 fL (7.6-11.3); Nucleated RBC Absolute Count 0.0 (0-0); Nucleated Red Blood Cells % 0.0 % (0-0); RBC Red Blood Cell Count 4.39 M/uL (3.86-4.86); White Blood Count 6.20 thou/uL (4.3-10.9)
[2025-07-02 01:46] LABS: Anion Gap 6.8 mEq/L (5.0-15.0); BUN Blood Urea Nitrogen 19.0 mg/dL (7-18); Glucose Level 102.0 mg/dL (74-106); NT PRO-BNP 164.0 pg/mL (<125); Potassium 3.8 mEq/L (3.5-5.1); Troponin High Sensitivity 10.0 pg/mL (<58.9)
--- NOTE | 2025-07-02 04:34 | ER ---
Nurse's Notes [facility] Name: Deidra Logan Age: 59 yrs Sex: Female : 1965 Arrival Date: 07/02/2025 Time: 00:33 Bed 14 Private MD: Diagnosis: Chest pain, unspecified Presentation: 07/02 00:51 Chief complaint: Patient states: CHEST HEAVINESS FOR 2 HRS. Coronavirus screen: At this jj7 time, the client does not indicate any symptoms associated with coronavirus-19. Ebola Screen: No symptoms or risks identified at this time. Initial Sepsis Screen: Does the patient meet any 2 criteria? No. Patient's initial sepsis screen is negative. Does the patient have a suspected source of infection? No. Patient's initial sepsis screen is negative. Risk Assessment: Do you want to hurt yourself or someone else? Patient reports no desire to harm self or others. Onset of symptoms was July 02, 2025. 00:51 Method Of Arrival: Ambulatory j7 00:51 Acuity: JAN 3 jj7 Triage Assessment: 00:51 General: Appears in no apparent distress. comfortable, Behavior is calm, cooperative, jj7 appropriate for age. Pain: Denies pain. Cardiovascular: Reports CHEST HEAVINESS Denies chest pain, shortness of breath. Historical: - Allergies: 00:56 Amoxicillin; jj7 00:56 Ibuprofen; jj7 00:56 Naproxen; jj7 - PMHx: 00:56 Diverticulitis; jj7 - PSHx: 00:56 Cholecystectomy; left fallopian tube and left ovary removed; jj7 - Immunization history:: Adult Immunizations up to date. - Infectious Disease History:: Denies. - Social history:: Smoking status: Patient denies any tobacco usage or history of. Patient/guardian denies using alcohol, street drugs, IV drugs. Screenin:00 [facility] ED Fall Risk Assessment (Adult) History of falling in the last 3 months, tb4 including since admission No falls in past 3 months (0 pts) Confusion or Disorientation No (0 pts) Intoxicated or Sedated No (0 pts) Impaired Gait No (0 pts) Mobility Assist Device Used No (0 pt) Altered Elimination No (0 pt) Score/Fall Risk Level 0 - 2 = Low Risk Maintained a safe environment. Abuse screen: Denies threats or abuse. Denies injuries from another. Nutritional screening: No deficits noted. Tuberculosis screening: No symptoms or risk factors identified. Assessment: 01:25 General: Appears in no apparent distress. comfortable, Behavior is calm, cooperative. tb4 Pain: Complains of pain in chest Pain does not radiate. Pain currently is 5 out of 10 on a pain scale. Quality of pain is described as pressure, Pain began suddenly, Is continuous, Alleviated by nothing. Neuro: Level of Consciousness is awake, alert, obeys commands, Oriented to person, place, time, situation, [place] are equal bilaterally Moves all extremities. Full function Gait is steady, Speech is normal, Facial symmetry appears normal. Cardiovascular: Heart tones S1 present Patient's skin is warm and dry. Rhythm is regular Chest pain is described as mild, quality is pressure, is located in chest wall began suddenly, 2 hours prior to arrival episodes are continuous. Respiratory: Airway is patent Respiratory effort is even, unlabored, Respiratory pattern is regular, symmetrical. GI: No signs and/or symptoms were reported involving the gastrointestinal system. Bowel sounds present X 4 quads. : No signs and/or symptoms were reported regarding the genitourinary system. EENT: No signs and/or symptoms were reported regarding the EENT system. Derm: No signs and/or symptoms reported regarding the dermatologic system. Skin is intact, is healthy with good turgor, Skin is dry, Skin is normal, Skin temperature is warm. Musculoskeletal: No signs and/or symptoms reported regarding the musculoskeletal system. Circulation, motion, and sensation intact. Range of motion: intact in all extremities. Vital Signs: 00:51 BP 142 / 71; Pulse 57; Resp 20; Temp 97.7; Pulse Ox 99% ; Weight 73.94 kg; Height 5 ft. jj7 7 in. ; Pain 0/10; 01:00 BP 118 / 66; Pulse 52; Resp 18; Pulse Ox 98% on R/A; Weight 73.94 kg; Height 5 ft. 7 tb4 in. ; Pain 5/10; 02:00 BP 119 / 63; Pulse 53; Resp 15; Pulse Ox 98% on R/A; Pain 5/10; tb4 03:00 BP 134 / 73; Pulse 56; Resp 16; Pulse Ox 99% on R/A; tb4 04:00 BP 129 / 71; Pulse 53; Resp 15; Pulse Ox 100% on R/A; tb4 01:00 Body Mass Index 25.53 (73.94 kg, 170.18 cm) tb4 00:51 Pain Scale: Adult jj7 01:00 Pain Scale: Adult tb4 02:00 Pain Scale: Adult tb4 ED Course: 00:35 Patient arrived in ED. mr 00:51 Arm band placed on right wrist. Patient placed in an exam room, on a stretcher, on jj7 cardiac monitor technician, on pulse oximetry. 00:55 Triage completed. jj7 00:58 Robby Lynch DO is Attending Physician. tt7 01:00 Patient has correct armband on for positive identification. Placed in gown. Bed in low tb4 position. Call light in reach. Client placed on continuous cardiac and pulse oximetry monitoring. NIBP monitoring applied. security monitor on. Pulse ox on. Door closed. 01:00 No provider procedures requiring assistance completed. tb4 01:20 Initial lab(s) drawn, by ED staff, sent to lab. EKG done, by ED staff, reviewed by tb4 Robby Lynch DO X-ray(s) taken. Inserted saline lock: 20 gauge in right antecubital area, using aseptic technique. Blood collected. Flushed with 10 mL NS. Patient maintains SpO2 saturation greater than 95% on room air. 01:28 XRAY Chest (1 view) In Process Unspecified. EDMS 03:42 Troponin High Sensitivity Sent. tb4 04:49 Provided Education on: Follow up with heel lining paster . tb4 04:49 IV discontinued, intact, bleeding controlled, No redness/swelling at site. Pressure tb4 dressing applied. Administered Medications: 02:32 Not Given (Patient Refused): morphineor iv 4 mg IVP once over 4 mins tb4 02:32 Not Given (Patient Refused): ondansetron 4 mg IVP once; over 2 minutes tb4 Medication: 01:00 VIS not applicable for this client. tb4 Outcome: 04:34 Discharge ordered by . tt7 04:49 Discharged to home ambulatory, tb4 04:49 Condition: stable 04:49 Discharge instructions given to patient, Instructed on discharge instructions, follow up and referral plans. Demonstrated understanding of instructions, follow-up care, 04:51 Patient left the ED. tb4 Signatures: Dispatcher [employer] Verna Melendez, Reg Reg mr Dick, Anibal, RN RN jj7 Shannan Pierre RN RN tb4 Robby Lynch, DO CONNORS tt7
--- NOTE | 2025-07-02 04:35 | EDPHYS ---
Physician Documentation [facility] Name: Deidra Logan Age: 59 yrs Sex: Female : 1965 Arrival Date: 07/02/2025 Time: 00:33 Bed 14 Private MD: ED Physician Robby Lynch HPI: 07/02 01:25 This 59 yrs old Female presents to ER via Ambulatory with complaints of Chest tt7 Pressure. 01:25 The patient or guardian reports chest pain that is located primarily in the substernal tt7 area. Onset: 2 hour(s) ago. The pain does not radiate. Associated signs and symptoms: Pertinent positives: shortness of breath. The chest pain is described as a pressure. Modifying factors: The symptoms are alleviated by nothing. the symptoms are aggravated by nothing. Severity of pain: At its worst the pain was moderate in the emergency department the pain is unchanged. The patient has not experienced similar symptoms in the past. Historical: - Allergies: 00:56 Amoxicillin; jj7 00:56 Ibuprofen; jj7 00:56 Naproxen; jj7 - PMHx: 00:56 Diverticulitis; jj7 - PSHx: 00:56 Cholecystectomy; left fallopian tube and left ovary removed; jj7 - Immunization history:: Adult Immunizations up to date. - Infectious Disease History:: Denies. - Social history:: Smoking status: Patient denies any tobacco usage or history of. Patient/guardian denies using alcohol, street drugs, IV drugs. ROS: 01:25 Constitutional: negative for fever. Abdomen/GI: negative for abdominal pain, nausea, tt7 vomiting, diarrhea. MS/Extremity: negative for injury and deformity. Skin: negative for rash. Neuro: negative for focal weakness. 01:25 Cardiovascular: Positive for chest pain, Negative for palpitations, 01:25 Respiratory: Positive for shortness of breath, Negative for cough, hemoptysis, Exam: 01:25 Constitutional: vital signs reviewed, well appearing. Head/Face: normocephalic, tt7 atraumatic. Eyes: no conjunctival injection, anicteric sclerae. ENT: mucus membranes moist. Neck: trachea midline, no JVD, no meningismus. Chest/axilla: normal chest wall appearance and motion, nontender, no crepitus. Cardiovascular: regular rate and rhythm, no murmurs, no rubs, no lower extremity edema. Respiratory: normal respiratory effort, no accessory muscle use, lungs CTAB. Abdomen/GI: soft, nondistended, nontender, no guarding or rebound, negative Wang's sign, no McBurney point tenderness. Back: normal ROM. Skin: warm, dry, intact, normal turgor, normal color, no rash. MS/ Extremity: normal ROM of extremities, no gross deformities. Neuro: alert and oriented with appropriate mental status, normal speech, follows commands, no focal neurologic deficits. Psych: appropriate mood and affect. Vital Signs: 00:51 BP 142 / 71; Pulse 57; Resp 20; Temp 97.7; Pulse Ox 99% ; Weight 73.94 kg; Height 5 ft. jj7 7 in. ; Pain 0/10; 01:00 BP 118 / 66; Pulse 52; Resp 18; Pulse Ox 98% on R/A; Weight 73.94 kg; Height 5 ft. 7 tb4 in. ; Pain 5/10; 02:00 BP 119 / 63; Pulse 53; Resp 15; Pulse Ox 98% on R/A; Pain 5/10; tb4 03:00 BP 134 / 73; Pulse 56; Resp 16; Pulse Ox 99% on R/A; tb4 04:00 BP 129 / 71; Pulse 53; Resp 15; Pulse Ox 100% on R/A; tb4 01:00 Body Mass Index 25.53 (73.94 kg, 170.18 cm) tb4 00:51 Pain Scale: Adult jj7 01:00 Pain Scale: Adult tb4 02:00 Pain Scale: Adult tb4 MDM: 00:58 Medical Screening Exam initiated tt7 01:21 Differential diagnosis: abnormal EKG, acute myocardial infarction, anxiety, tt7 costochondritis, gastritis, gastroesophageal reflux disease (GERD), peptic ulcer disease, pneumonia, pneumothorax. Data reviewed: vital signs, nurses notes, EKG. ED course: I independently interpreted the patient's EKG performed on 07/02/2025 at 0012. On my interpretation, EKG demonstrates normal sinus rhythm, ventricular rate 54 bpm, normal axis, normal QRS interval, normal ST segments, no STEMI. ED course: Patient with 2 hours of chest pressure, overall stable vital signs, normal physical exam, standard cardiac workup ordered including CBC, BMP, EKG, chest x-ray, troponin, BNP, will monitor the patient on cardiac monitoring. Cardiac monitoring was ordered due to the potential for cardiac ischemia given the patient's chest pain and to monitor for dysrythmia. I independently interpreted the patient's cardiac rhythm as normal sinus rhythm at a rate of 58 bpm on the phototypesetting equipment monitor. 02:18 ED course: Laboratory studies and EKG are reassuring, troponin is negative, patient has tt7 low risk heart score of 2, will treat patient's pain with parenteral morphine, continue cardiac monitoring, and obtain 2-hour repeat troponin. 02:43 Data reviewed: lab test result(s), radiologic studies, plain films. ED course: I tt7 independently interpreted the patient's chest x-ray. On my interpretation, chest x-ray demonstrates no radiographic evidence of acute cardiopulmonary disease. 04:36 ED course: Repeat troponin is negative, after completion of the patient's emergency tt7 department evaluation, I do not suspect a life-threatening or disabling process. Patient is medically stable and not in need of emergent medical intervention. I had a detailed discussion with the patient regarding the historical points, exam findings, emergency department evaluation, diagnostic results, and the discharge diagnosis. I instructed the patient on outpatient management of their condition. I discussed the need for outpatient follow-up with a primary care physician. I informed the patient on return precautions, including the need to return to the ED if symptoms do not improve, worsen, or if there are any questions or concerns that arise at home. The patient was discharged in stable condition. 07/02 00:59 Order name: Basic Metabolic Panel; Complete Time: 01:46 07/02 00:59 Order name: CBC with Diff; Complete Time: :07/02 00:59 Order name: NT PRO-BNP; Complete Time: 01:46 07/02 00:59 Order name: Troponin HS; Complete Time: :07/02 03:28 Order name: Troponin High Sensitivity; Complete Time: 04:34 07/02 00:59 Order name: XRAY Chest (1 view) 07/02 00:59 Order name: EKG; Complete Time: 00:59 07/02 00:59 Order name: Cardiac monitoring; Complete Time: 01:24 07/02 00:59 Order name: EKG - Nurse/Tech; Complete Time: 01:24 tt7 07/02 00:59 Order name: IV Saline Lock; Complete Time: 01:24 tt7 07/02 00:59 Order name: Labs collected and sent; Complete Time: 01:24 tt7 07/02 00:59 Order name: O2 Per Protocol; Complete Time: 01:24 tt7 07/02 00:59 Order name: O2 Sat Monitoring; Complete Time: 01:24 tt7 Administered Medications: 02:32 Not Given (Patient Refused): morphineor iv 4 mg IVP once over 4 mins tb4 02:32 Not Given (Patient Refused): ondansetron 4 mg IVP once; over 2 minutes tb4 Disposition: 04:36 Co-signature as Attending Physician, Robby Lynch DO. tt7 Disposition Summary: 07/02/25 04:34 Discharge Ordered Notes: Location: Home tt7 Problem: new tt7 Symptoms: have improved tt7 Condition: Stable tt7 Diagnosis - Chest pain, unspecified tt7 Followup: tt7 - With: Emergency Department - When: As needed - Reason: Followup: tt7 - With: Private Physician - When: 1 - 2 days - Reason: Recheck today's complaints, Re-evaluation by your physician Discharge Instructions: - Discharge Summary Sheet tt7 - Nonspecific Chest Pain, Adult, [id number] tt7 Forms: - Work release form jj7 - Medication Reconciliation Form tt7 - Antibiotic Education tt7 - Prescription Opioid Use tt7 - Patient Portal Instructions tt7 - Leadership Thank You Letter tt7 Signatures: Dispatcher [employer] Anibal Porter RN RN jj7 Robby Lynch DO DO tt7 Shannan Pierre RN tb4
[2025-07-02 04:59] VITALS: TEMP 97.7
[2025-07-02 05:06] VITALS: BP 129/71; O2SAT 100
--- NOTE | 2025-07-02 06:07 | RAD REPORT ---
EXAM: XR Chest, 1 View ([id number], [id number]) CLINICAL HISTORY: 59 years Female CHEST PAIN Bed Name: 15 TECHNIQUE: Frontal view of the chest. COMPARISON: None FINDINGS: Lungs: Clear. No consolidation. Pleural space: No pneumothorax. No pleural effusion. Heart: Normal heart size. Mediastinum: Normal mediastinal contour. Bones/joints: No acute abnormality. IMPRESSION: 1. No acute cardiopulmonary process. Electronically signed by: Reji Mckeon MD 07/02/2025 02:16 AM CDT Due to temporary technical issues with the PACS/AIRTAME reporting system, reports are being giana d by the in-house radiologist without review as a courtesy to ensure prompt reporting the interpreting radiologist is fully responsible for the content of the report. Transcribed Date/Time: 07/02/2025 6:06 AM
== END 2025-07-02 04:51 | disposition home or self-care (01) ==
LOC: ER 00:33
DX: R07.89 Other chest pain (principal); R06.02 Shortness of breath
CPT/HCPCS: 36415; 71045; 80048; 83880; 84484; 85025; 93005; 99285